=== PATIENT | female | born 1940 | race Caucasian/White ===

== ENCOUNTER → 2016-07-13 | Outpatient (CLI) | payer OTHER, BC ==
[~2016-07-13] MED LIST: ADVIN10/60 INH; ALBUAER2 INH; ASPEC81 PO; Amoxicillin; BIOT1CAP8; CETI10TA84 PO; FELO5TAB PO; MTR500; NAPR-998 PO; NAPR1TAB9 PO; VITAMINB PO; simvastatin PO
[2016-07-13 15:25] LABS: ALB/GLOB RATIO 1.2 (0.9-2); ALKALINE PHOSPHATASE 85 U/L (45-117); ALT/SGPT 29 U/L (12-78); AST/SGOT 22 U/L (15-37); BLOOD UREA NITROGEN 15 mg/dl (7-18); CALCIUM 8.9 mg/dl (8.5-10.1); CARBON DIOXIDE 28 mmol/L (21-32); CHLORIDE 106 mmol/L (98-107); CREATININE 0.83 mg/dl (0.60-1.20); GLUCOSE 86 mg/dl (70-99); HDL CHOLESTEROL 64 mg/dl; POTASSIUM 3.8 mmol/L (3.5-5.1); SODIUM 140 mmol/L (136-145)
[2016-07-13 15:36] LABS: CHOLESTEROL 186 mg/dl (0-200); CHOLESTEROL/HDL RATIO 2.9; LDL CHOLESTEROL CALCULATED 81 mg/dl; TRIGLYCERIDES 206 mg/dl (0-150); VERY LOW DENSITY LIPOPROT CALC 41 mg/dl
== END | disposition home or self-care (01) ==
LOC: C.LABBC 09:39
PROVIDERS: ATTEND Internal Medicine
DX: E78.00 Pure hypercholesterolemia, unspecified (principal); D64.9 Anemia, unspecified

== ENCOUNTER → 2016-10-04 | Outpatient (CLI) | payer OTHER, BC ==
[2016-10-04 12:13] LABS: BASO % 0.4 %; BASO ABS # 0.06 K/uL (0-0.2); COMPLETE YES; EOS % 0.7 %; IG% 0.3 %; LYMPH % 14.8 %; LYMPH ABS # 2.24 K/uL (1.2-3.4); MEAN CELL VOLUME 93.3 fL (80-100); MEAN CORPUSCULAR HEMOGLOBIN 32.1 pg (25-34); MEAN CORPUSCULAR HGB CONC 34.4 g/dl (32-36); MEAN PLATELET VOLUME 10.7 fL (7.4-10.4); MONO % 9.2 %; NEUT % 74.6 %; PLATELET COUNT 478 K/uL (130-400); RED BLOOD COUNT 5.36 M/uL (4.2-5.4); WHITE BLOOD COUNT 15.16 K/uL (4.8-10.8)
[2016-10-04 14:31] LABS: LYME DISEASE AB IGG POS (NEG); LYME DISEASE AB IGM POS (NEG)
[2016-10-10 05:08] LABS: 18KDIGG BAND NONREACTIVE (NONREACTIVE); 23KDIGG BAND REACTIVE (NONREACTIVE); 23KDIGM BAND REACTIVE (NONREACTIVE); 28KDIGG BAND NONREACTIVE (NONREACTIVE); 30KDIGG BAND NONREACTIVE (NONREACTIVE); 39KDIGG BAND NONREACTIVE (NONREACTIVE); 39KDIGM BAND NONREACTIVE (NONREACTIVE); 41KDIGG BAND REACTIVE (NONREACTIVE); 41KDIGM BAND REACTIVE (NONREACTIVE); 45KDIGG BAND NONREACTIVE (NONREACTIVE); 58KDIGG BAND NONREACTIVE (NONREACTIVE); 66KDIGG BAND REACTIVE (NONREACTIVE); 93KDIGG BAND NONREACTIVE (NONREACTIVE)
== END | disposition home or self-care (01) ==
LOC: C.LAB1850 10:37
PROVIDERS: ATTEND Internal Medicine
DX: L53.9 Erythematous condition, unspecified (principal)

== ENCOUNTER → 2016-10-11 | Outpatient (CLI) | payer OTHER, BC ==
--- NOTE | 2016-10-11 16:31 | DIAGNOSTIC IMAGING REPORT ---
KUB CLINICAL HISTORY: Abdominal cramping. Left upper quadrant and left flank pain. COMPARISON STUDY: IVP July 28, 2015. FINDINGS: Abdominal and pelvic surgical clips are noted. There are bowel anastomoses. There is no evidence of a bowel obstruction. There is a moderate amount of stool within the colon, most pronounced within the splenic flexure. There is extensive vascular calcification. No urinary calculi are identified. IMPRESSION: 1. No evidence for a bowel obstruction. 2. Moderate amount of stool within the colon. Electronically signed by: Del Gamboa M.D. 10/11/2016 4:29 PM Dictated Date/Time: 10/11/2016 4:27 PM
== END | disposition home or self-care (01) ==
LOC: C.RAD1850 15:32
PROVIDERS: ATTEND Physician Assistant
DX: R10.9 Unspecified abdominal pain (principal)

== ENCOUNTER → 2016-10-11 | Outpatient (CLI) | payer OTHER, BC ==
[2016-10-11 14:40] LABS: BASO % 0.9 %; BASO ABS # 0.07 K/uL (0-0.2); EOS % 2.7 %; HEMATOCRIT 48.7 % (37-47); IG% 0.3 %; LYMPH % 42.2 %; LYMPH ABS # 3.17 K/uL (1.2-3.4); MEAN CELL VOLUME 92.9 fL (80-100); MEAN CORPUSCULAR HEMOGLOBIN 31.7 pg (25-34); MEAN PLATELET VOLUME 9.6 fL (7.4-10.4); MONO % 13.8 %; NEUT % 40.1 %; PLATELET COUNT 360 K/uL (130-400); RED BLOOD COUNT 5.24 M/uL (4.2-5.4); WHITE BLOOD COUNT 7.52 K/uL (4.8-10.8)
[2016-10-11 14:57] LABS: COMPLETE YES; MEAN CORPUSCULAR HGB CONC 34.1 g/dl (32-36)
== END | disposition home or self-care (01) ==
LOC: C.LAB1850 14:21
PROVIDERS: ATTEND Physician Assistant
DX: R10.9 Unspecified abdominal pain (principal)

== ENCOUNTER → 2016-10-26 | Outpatient (CLI) | payer OTHER, BC | END | disposition home or self-care (01) | LOC: C.MAMM 09:51 | PROVIDERS: ATTEND Internal Medicine | DX: M85.851 Other specified disorders of bone density and structure, right thigh (principal); M85.852 Other specified disorders of bone density and structure, left thigh ==

== ENCOUNTER → 2016-12-27 | Outpatient (CLI) | payer OTHER, BC ==
--- NOTE | 2016-12-27 13:40 | MAMMOGRAPHY REPORT ---
BILATERAL DIGITAL SCREENING MAMMOGRAM TOMOSYNTHESIS WITH CAD: 12/27/2016 CLINICAL HISTORY: Routine screening. TECHNIQUE: Breast tomosynthesis in addition to standard 2D mammography was performed. Current study was also evaluated with a Computer Aided Detection (CAD) system. COMPARISON: Comparison is made to exams dated: 12/27/2015 mammogram, 07/24/2014 mammogram, 03/03/2013 mammogram, 08/23/2011 mammogram, 08/19/2010 mammogram, and 07/21/2009 mammogram - [facility]. BREAST COMPOSITION: The tissue of both breasts is almost entirely fatty. FINDINGS: No suspicious masses, calcifications, or areas of architectural distortion are noted in ei ther breast. There has been no significant interval change compared to prior exams. IMPRESSION: ACR BI-RADS CATEGORY 1: NEGATIVE There is no mammographic evidence of malignancy. A 1 year screening mammogram is recommended. The pa tient will receive written notification of the results. Approximately 10% of breast cancers are not detected with mammography. A negative mammographic report should not delay biopsy if a clinically suggestive mass is present. Zo Guzman M.D. /:12/27/2016 10:18:25 [employer]ipe [employer]itter Ammonia: [facility] FAROOQ([place])([place]), [facility] letter sent: Normal 1/2 BI-RADS Code: ACR BI-RADS Category 1: Negative
== END | disposition home or self-care (01) ==
LOC: C.MAMM 09:52
PROVIDERS: ATTEND Internal Medicine
DX: Z12.31 Encounter for screening mammogram for malignant neoplasm of breast (principal)

== ENCOUNTER → 2017-01-15 | Outpatient (CLI) | payer OTHER, BC ==
[2017-01-15 15:01] LABS: ALT/SGPT 26 U/L (12-78); BLOOD UREA NITROGEN 14 mg/dl (7-18); BUN/CREATININE RATIO 15.6 (10-20); CALCIUM 9.2 mg/dl (8.5-10.1); CARBON DIOXIDE 29 mmol/L (21-32); CHLORIDE 103 mmol/L (98-107); CHOLESTEROL 211 mg/dl (0-200); CREATININE 0.87 mg/dl (0.60-1.20); GLUCOSE 88 mg/dl (70-99); POTASSIUM 3.8 mmol/L (3.5-5.1); SODIUM 139 mmol/L (136-145); TRIGLYCERIDES 236 mg/dl (0-150); VERY LOW DENSITY LIPOPROT CALC 47 mg/dl
[2017-01-15 15:07] LABS: ALB/GLOB RATIO 1.2 (0.9-2); ALKALINE PHOSPHATASE 87 U/L (45-117); AST/SGOT 23 U/L (15-37); CHOLESTEROL/HDL RATIO 3.6; HDL CHOLESTEROL 58 mg/dl; LDL CHOLESTEROL CALCULATED 106 mg/dl
== END | disposition home or self-care (01) ==
LOC: C.LABBC 10:03
PROVIDERS: ATTEND Internal Medicine
DX: E78.00 Pure hypercholesterolemia, unspecified (principal)

== ENCOUNTER → 2017-02-05 | Outpatient (CLI) | payer OTHER, BC ==
--- NOTE | 2017-02-05 11:03 | DIAGNOSTIC IMAGING REPORT ---
ULTRASOUND KIDNEYS AND BLADDER CLINICAL HISTORY: Right-sided hydronephrosis. COMPARISON STUDY: Abdominal CT dated 06/22/2009. IV pyelogram dated 07/28/2015. TECHNIQUE: Real-time, grayscale, and color flow sonography of the kidneys and bladder is performed. Images are reviewed in the transverse and longitudinal planes. FINDINGS: Kidneys: The kidneys are normal in size and echotexture. The right kidney measures 10.6 cm in length and the left kidney measures 10.6 cm in length. An extrarenal pelvis is seen bilaterally. There is fullness the renal collecting system in both kidneys without Zhen hydronephrosis. No shadowing renal calculi are identified. A 6 mm cyst is noted in the right upper pole. There is no sonographic evidence of contour deforming renal mass lesion. No perinephric fluid is identified. Bladder: The bladder is normal in appearance. A left ureteral jet was seen. IMPRESSION: 1. There is fullness of the renal collecting system bilaterally without evidence of zhen hydronephrosis. 2. The bladder was normal as visualized. Electronically signed by: Janusz Rosario M.D. 02/05/2017 11:02 AM Dictated Date/Time: 02/05/2017 10:58 AM
== END | disposition home or self-care (01) ==
LOC: C.ULTR 10:06
PROVIDERS: ATTEND Urology
DX: N13.30 Unspecified hydronephrosis (principal)

== ENCOUNTER → 2017-07-19 | Outpatient (CLI) | payer OTHER, BC ==
[~2017-07-19] MED LIST changes: +ASPI81TA28 PO; +SIMV40TA2 PO; +SYMIN160 INH; +VNTHFA/IN INH
[2017-07-19 11:07] LABS: ALBUMIN 3.6 gm/dl (3.4-5.0); ALT/SGPT 27 U/L (12-78); AST/SGOT 20 U/L (15-37); BLOOD UREA NITROGEN 17 mg/dl (7-18); CARBON DIOXIDE 29 mmol/L (21-32); CREATININE 0.89 mg/dl (0.60-1.20); GLUCOSE 101 mg/dl (70-99); SODIUM 136 mmol/L (136-145)
[2017-07-19 11:09] LABS: ALKALINE PHOSPHATASE 82 U/L (45-117); CHOLESTEROL 162 mg/dl (0-200); LDL CHOLESTEROL CALCULATED 75 mg/dl; TOTAL PROTEIN 7.1 gm/dl (6.4-8.2)
== END | disposition home or self-care (01) ==
LOC: C.LABBC 08:16
PROVIDERS: ATTEND Internal Medicine
DX: E78.00 Pure hypercholesterolemia, unspecified (principal)

== ENCOUNTER 2017-07-21 15:23 | Emergency (ER) | payer OTHER, BC ==
[~2017-07-21] VITALS: Ht 157.5 cm; Wt 74.3 kg
[~2017-07-21 15:23] MED LIST changes: -ASPI81TA28 PO; -SIMV40TA2 PO; -SYMIN160 INH; -VNTHFA/IN INH
[2017-07-21 15:27] VITALS: BP 163/87; PULSE 67; TEMP 36.4; O2SAT 96; Ht 157.5 cm; Wt 74.3 kg
--- NOTE | 2017-07-21 15:56 | EMERGENCY ROOM VISIT NOTE ---
ED Visit Note First contact with patient: 15:30 CHIEF COMPLAINT: Tick bite HISTORY OF PRESENT ILLNESS: This 77-year-old female patient noticed a tick embedded in the right upper arm this afternoon after taking a shower. Patient states that she was out during the morning working in the yard, believes that the tick became attached at that time. She believes the tick has only been on for a few hours. She states that her tried to remove it, but was not able to get all of it. She denies any headaches, neck pain or stiffness, fevers or chills. REVIEW OF SYSTEMS: Head: No headache, injury or neck pain. A Neck: No pain , stiffness, or swelling. Neurological: No headache, new changes in mental status, vertigo, focal weakness, numbness. Gastrointestinal: No abdominal pain , blood in stools, diarrhea, loss of appetite, nausea, or vomiting. General: No fever or chills, fatigue, loss of appetite, or significant recent weight gain or loss. PMH: The patient is healthy; there is no significant medical or surgical history. SOCIAL HISTORY: Patient lives at home. Non-smoker, occasional alcohol use. PHYSICAL EXAM: Vital Signs: Reviewed Nurse's notes. There is a small zone of inflammation and ecchymosis around the spot where the tick was, with retained parts of tick noted in the skin. The skin is otherwise clear. NEUROLOGICAL: Alert and cooperative. Sensory and motor functions grossly intact. EMERGENCY DEPARTMENT COURSE: I examined the patient. There are some remaining parts of the tick within the skin of the patient's neck. This was easily removed utilizing a #11 blade and forceps. The area was cleansed with chlorhexidine, bacitracin and a bandage were applied. The patient tolerated the procedure well with no known complications. Patient was educated regarding wound care, follow-up, and return precautions, she verbalized understanding. Patient was discharged home in stable condition and ambulatory. Current/Historical Medications Scheduled Aspirin (Aspirin Ec), 81 MG PO DAILY Budesonide/Formoterol Fumarate (Symbicort 160/4.5 Inhaler ), 2 PUFFS INH BID Felodipine (Plendil), 5 MG PO DAILY Simvastatin (Zocor), 40 MG PO DAILY Scheduled PRN Albuterol Hfa (Ventolin Hfa), 2-4 PUFFS INH Q6H PRN for Shortness of Breath Allergies Coded Allergies: Codeine (Verified Allergy, Unknown, 09/12/09) Vital Signs Date Time Temp Pulse Resp B/P (MAP) Pulse Ox O2 Delivery O2 Flow Rate FiO2 07/21/17 16:05 16 07/21/17 15:27 36.4 67 20 163/87 96 Room Air Departure Information Impression Primary Impression: Tick bite Dispostion Home / Self-Care Condition GOOD Referrals RV. Sorenson MD (PCP) Patient Instructions ED Bite Tick No Abx Tx, ED Facts Tick, My [facility] Additional Instructions You have been evaluated and treated in the emergency department for your tick bite. Please keep the area clean, you may wash with soap and water. You may apply thin film of antibiotic ointment to the area and keep covered with a Band-Aid for the next 2-3 days. Please monitor the area for any signs of infection, including increased redness , swelling, pain, pus drainage, streaking up the arm, fever/chills, and seek immediate medical attention if any of these are noticed. Problem Qualifiers Primary Impression: Tick bite Encounter type: initial encounter Qualified Codes: W57.XXXA - Bitten or stung by nonvenomous insect and other nonvenomous arthropods, initial encounter
[2017-07-21] MEDS ORDERED: VNTHFA/IN INH (16:01)
[2017-07-21] MEDS ORDERED: SYMIN160 INH (16:01)
[2017-07-21] MEDS ORDERED: FELO5TAB PO (16:01)
[2017-07-21] MEDS ORDERED: SIMV40TA2 PO (16:01)
[2017-07-21] MEDS ORDERED: ASPI81TA28 PO (16:01)
== END 2017-07-21 16:06 | disposition home or self-care (01) ==
LOC: C.EDB 15:23 → C.EDD 16:06
DX: S40.861A Insect bite (nonvenomous) of right upper arm, initial encounter (principal); W57.XXXA Bitten or stung by nonvenomous insect and other nonvenomous arthropods, initial encounter; Z79.82 Long term (current) use of aspirin; Z79.899 Other long term (current) drug therapy; Z88.5 Allergy status to narcotic agent; Y92.017 Garden or yard in single-family (private) house as the place of occurrence of the external cause

== ENCOUNTER 2023-11-27 05:08 | Inpatient (IN) ==
--- NOTE | 2023-10-24 16:02 | PAT Medication Instructions ---
Medication Instructions Date of Service October 24, 2023 Home Medications Medication Instructions Recorded amoxicillin 500 mg capsule See Rx Instructions .Route 11/15/22 .COMPLEX #4 caps felodipine 10 mg tablet,extended 10 mg PO DAILY #90 tabs 02/19/23 release 24 hr olmesartan 5 mg tablet 10 mg (2 x 5 mg) PO DAILY #180 tabs 02/23/23 simvastatin 20 mg tablet 20 mg PO QPM #90 tabs 07/18/23 mometasone 100 mcg/actuation HFA 2 puff inhalation BID #3 Inhalers 08/20/23 aerosol inhaler (Asmanex HFA) diclofenac sodium 1 % topical gel 2 g topical QID #100 grams 09/06/23 oxybutynin chloride 5 mg tablet 5 mg PO DAILY #90 tabs 10/17/23 albuterol sulfate 90 mcg/actuation aerosol inhaler 2 puffs inhalation Q4H PRN sob aspirin 81 mg tablet 81 mg PO DAILY cholecalciferol (vitamin D3) 50 mcg (2,000 unit) capsule 2,000 unit PO DAILY amoxicillin 500 mg capsule See Rx Instructions .Route .COMPLEX psyllium [Metamucil] 1 cap PO Q OTHER DAY timolol maleate 0.5 % eye drops 1 drp ophthalmic (eye) DAILY felodipine 10 mg tablet,extended release 24 hr 10 mg PO DAILY olmesartan 5 mg tablet 10 mg (2 x 5 mg) PO DAILY simvastatin 20 mg tablet 20 mg PO QPM mometasone 100 mcg/actuation HFA aerosol inhaler (Asmanex HFA) 2 puff inhalation BID fexofenadine 180 mg tablet (Deloris Allergy) 180 mg PO Q24H PRN Allergy Symptoms diclofenac sodium 1 % topical gel 2 g topical QID oxybutynin chloride 5 mg tablet 5 mg PO DAILY acetaminophen 650 mg tablet,extended release 650 mg PO Q12H PRN Pain cyanocobalamin (vitamin B-12) 50 mcg tablet (Vitamin B-12) 50 mcg PO DAILY Continue as directed amoxicillin 500 mg capsule See Rx Instructions .Route .COMPLEX ASK your prescriber and surgeon aspirin 81 mg tablet 81 mg PO DAILY STOP taking 24 hours before surgery diclofenac sodium 1 % topical gel 2 g topical QID DO NOT take the morning of surgery cholecalciferol (vitamin D3) 50 mcg (2,000 unit) capsule 2,000 unit PO DAILY psyllium [Metamucil] 1 cap PO Q OTHER DAY olmesartan 5 mg tablet 10 mg (2 x 5 mg) PO DAILY fexofenadine 180 mg tablet (Deloris Allergy) 180 mg PO Q24H PRN Allergy Symptoms oxybutynin chloride 5 mg tablet 5 mg PO DAILY cyanocobalamin (vitamin B-12) 50 mcg tablet (Vitamin B-12) 50 mcg PO DAILY Take morning of surgery With a small sip of water, OTHERWISE NOTHING TO EAT OR DRINK AFTER MIDNIGHT: albuterol sulfate 90 mcg/actuation aerosol inhaler 2 puffs inhalation Q4H PRN sob (use if needed; please bring rescue inhaler with you to hospital day of surgery if possible) timolol maleate 0.5 % eye drops 1 drp ophthalmic (eye) DAILY felodipine 10 mg tablet,extended release 24 hr 10 mg PO DAILY mometasone 100 mcg/actuation HFA aerosol inhaler (Asmanex HFA) 2 puff inhalation BID acetaminophen 650 mg tablet,extended release 650 mg PO Q12H PRN Pain (if needed) Take evening before surgery albuterol sulfate 90 mcg/actuation aerosol inhaler 2 puffs inhalation Q4H PRN sob (if needed) simvastatin 20 mg tablet 20 mg PO QPM mometasone 100 mcg/actuation HFA aerosol inhaler (Asmanex HFA) 2 puff inhalation BID fexofenadine 180 mg tablet (Deloris Allergy) 180 mg PO Q24H PRN Allergy Symptoms (if needed) acetaminophen 650 mg tablet,extended release 650 mg PO Q12H PRN Pain (if needed) Other Notes If you have any questions please call us at [phone] or [phone] or [phone] or [phone]
--- NOTE | 2023-10-25 12:14 | Anesthesiology Consultation ---
Date of Service October 25, 2023 Assessment & Plan (1) Encounter for pre-operative examination: - Infectious disease screening: Per assessment on 10/25/23: No known recent infectious disease contacts or current infectious disease symptoms. - Outpatient joint assessment: Pt currently scheduled for inpatient pathway. If surgeon requests review for outpatient joint pathway, patient is not recommended candidate for outpatient joint program from anesthesia standpoint based on available information. - Patient acceptable risk for surgery pending PCP preop evaluation ([facility], appt 11/07). Chart Review Chart Review: Patient seen in Pre Admission Testing Teaching & Discussion Pre-Anesthesia Teaching/Discussion Notes: Instructed NPO after midnight before surgery,except medications with 15 cc of water. Medication instructions provided according to the PAT guidelines. History Surgery Operation Date: 11/27/23 10:40 Proposed Procedures p Left Total Knee Arthroplasty - Trav Oh MD Height/Weight Height: 5 ft 2 in Weight: 71.6 kg Allergies Allergy/AdvReac Type Severity Reaction Status Date / Time codeine Allergy Unknown Nausea Verified 08/29/23 12:41 buspar AdvReac Intermediate "Did not Uncoded 10/25/23 12:[address] it made me feel" Medications Home Medications Medication Instructions Recorded Confirmed Last Taken albuterol sulfate 90 mcg/actuation 2 puffs inhalation Q4H PRN sob #1 g 12/24/18 10/24/23 Unknown aerosol inhaler aspirin 81 mg tablet 81 mg PO DAILY 01/30/19 10/24/23 Unknown cholecalciferol (vitamin D3) 50 2,000 unit PO DAILY 02/26/20 10/24/23 Unknown mcg (2,000 unit) capsule amoxicillin 500 mg capsule See Rx Instructions .Route 11/15/22 10/24/23 Unknown .COMPLEX #4 caps psyllium [Metamucil] 1 cap PO Q OTHER DAY 12/12/22 10/24/23 Unknown timolol maleate 0.5 % eye drops 1 drp ophthalmic (eye) DAILY 12/12/22 10/24/23 Unknown felodipine 10 mg tablet,extended 10 mg PO DAILY #90 tabs 02/19/23 10/24/23 Unknown release 24 hr olmesartan 5 mg tablet 10 mg (2 x 5 mg) PO DAILY #180 tabs 02/23/23 10/24/23 Unknown simvastatin 20 mg tablet 20 mg PO QPM #90 tabs 07/18/23 10/24/23 Unknown mometasone 100 mcg/actuation HFA 2 puff inhalation BID #3 Inhalers 08/20/23 10/24/23 Unknown aerosol inhaler (Asmanex HFA) fexofenadine 180 mg tablet 180 mg PO Q24H PRN Allergy Symptoms 08/29/23 10/24/23 Unknown (Deloris Allergy) diclofenac sodium 1 % topical gel 2 g topical QID #100 grams 09/06/23 10/24/23 Unknown oxybutynin chloride 5 mg tablet 5 mg PO DAILY #90 tabs 10/17/23 10/24/23 Unknown acetaminophen 650 mg 650 mg PO Q12H PRN Pain 10/24/23 10/24/23 Unknown tablet,extended release cyanocobalamin (vitamin B-12) 50 50 mcg PO DAILY 10/24/23 10/24/23 Unknown mcg tablet (Vitamin B-12) Past Medical History Medical History Anxiety Arthritis Chronic rhinitis Conductive hearing loss Essential hypertension GERD (gastroesophageal reflux disease) History of COVID-19 (2022) Symptoms resolved 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, hx chemo (completed ) and s/p multiple surgical interventions (most recently 2019) Hypercholesteremia Intrinsic asthma Low back pain CRISTINA (obstructive sleep apnea) "No device needed" per patient Osteopenia 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 [place] [facility] [place] [facility] [place]Dr Gonzalez) Monitored every 3 mos- PRN phlebotomy (most recent 09/2023) Exercise / Class Metabolic Activity III < 4 Walking/Shop/Light housework (one FS: No CP, + SOB) Past Family History Family History Brother Myocardial infarction Stroke Brother Myocardial infarction Stroke Mother , AGE 68 Myocardial infarction Parents Stroke Father , AGE 87 Aneurysm of femoral artery Parents Osteoarthritis Aunt Colorectal cancer Grandfather (Maternal) Stroke Denies family history of Ovarian cancer Breast cancer Past Surgical History Surgical History S/P bilateral salpingo-oophorectomy S/P cholecystectomy S/P exploratory laparotomy S/P eye surgery S/P hernia repair S/P hysterectomy S/P right hemicolectomy S/P splenectomy S/P total knee arthroplasty Right Past Anesthesia History No Hx of Anesthesia Complications and No Family Hx of Anesthesia Complications History of PONV No Hx of PONV and No Hx of Motion Sickness Social History Smoking Status: Never smoker Do You Dip or Chew Tobacco: No Hx Alcohol Use: Yes Alcohol type: wine alcohol intake frequency: 0-2 drinks per day (1 drink/day) Hx Substance Use: No substance use type: does not use Review of Systems Patient denies chest pain, shortness of breath, fever, chills, cough, wheezing, palpitations. Physical Exam Vital Signs BP 121/81 P 65 TEMP 97.9 SP02 93%RA RESP 18 Physical Full cervical extension range of motion. Full TMJ range of motion. TMD 3 finger breaths Mallampati Score III Dentition: missing sides/molars, + several dental restorations Lungs: clear throughout to auscultation Cardiac: regular rate and rhythm, no murmurs noted Spine: normal Carotid arteries: negative bruit Extremities: no LE edema Lab Results Anesthesia Preop Results Results Anesthesia Widget: WBC 10.63 K/ul (4.8-10.8) 10/25/23 Hgb 16.6 g/dl (12.0-16.0) H 10/25/23 Hct 49.2 % (37.0-47.0) H 10/25/23 Plt 378 K/uL (130-400) 10/25/23 Na 136 mmol/L (136-145) 10/08/23 K 3.6 mmol/L (3.5-5.1) 10/08/23 Cl 100 mmol/L (98-107) 10/08/23 CO2 31 mmol/L (21-32) 10/08/23 BUN 18 mg/dl (6-23) 10/08/23 Creat 0.77 mg/dl (0.6-1.2) 10/08/23 Glucose Level 67 mg/dl (70-99(Fasting)) L 10/08/23 PT 11.1 Seconds (9.0-12.0) 10/25/23 PTT 27 Seconds (21-31) 10/25/23 INR 1.0 (0.9-1.1) 10/25/23 TSH 2.748 uIu/ml (0.300-4.500) 10/08/23 Free T4 0.86 ng/dl (0.61-1.60) 10/08/23 Blood Type A Positive 10/25/23 Antibody Screen NEGATIVE 10/25/23 Testing Electrocardiogram Date: 08/29/23 NSR at 63bpm. LAD. LVH with QRS widening. Cannot r/o septal infarct, age undetermined. Echo 10/01/23* Chest X-Ray Date: 10/25/23 FINDINGS: Elevation/eventration of the right hemidiaphragm is unchanged. Lungs are clear. There is no pneumothorax or pleural effusion. Cardiac size is normal. Mediastinal contours are normal. There is no evidence for pulmonary edema. IMPRESSION: No acute cardiopulmonary findings. No change in appearance of the chest. Echocardiogram Date: 10/01/23 EF 60-65%. No RWMA. Mild cLVH. Mild LAD. Mild MR. Mild to moderate TR. Mild TN. Normal estimated RVSP.
[2023-11-27] MEDS: LR 60ML/HR IV SCH (05:51)
[2023-11-27] MEDS: ACETAMINOPHEN 500 MG TAB PO SCH ×2 (05:52→14:01)
[2023-11-27] MEDS: LR 500ML BOLUS, THEN 15ML/HR IV SCH (05:52)
[2023-11-27] MEDS: CeleBREX 200 MG CAP PO SCH (05:53)
[2023-11-27] MEDS: FAMOTIDINE 20 MG TAB PO SCH (05:53)
[2023-11-27] MEDS: METOCLOPRAMIDE HCL 10 MG TABLET PO SCH (05:53)
[2023-11-27] MEDS: dexAMETHasone**PF** 10 MG/ML VIAL IV SCH (05:54)
[2023-11-27] MEDS ORDERED: ROPIVACAINE 0.5% 5 MG/ML 30 ML VIAL ONE (06:21)
[2023-11-27] MEDS ORDERED: ONDANSETRON INJ 2 MG/ML 2 ML VIAL IV PRN ×2 (06:43→10:03)
[2023-11-27] MEDS ORDERED: fentaNYL citrate PF 100 MCG/2 ML VIAL ONE (06:43)
[2023-11-27] MEDS ORDERED: MIDAZOLAM HCL 1 MG/ML 2ML VIAL ONE (06:43)
[2023-11-27] MEDS ORDERED: fentaNYL citrate PF 100 MCG/2 ML VIAL IV PRN (06:43)
[2023-11-27] MEDS ORDERED: HYDROmorphone INJ 1 MG/ML SYRINGE IV PRN (06:43)
[2023-11-27] MEDS ORDERED: ATROPINE SULFATE 0.1 MG/ML 10ML SYR IV PRN (06:43)
[2023-11-27] MEDS ORDERED: ePHEDrine sulfate 50 MG/ML AMP IV PRN (06:43)
--- NOTE | 2023-11-27 06:50 | History & Physical Bridge Note ---
Date of Service November 27, 2023 History & Physical Bridge Note I have examined the patient, reviewed the History & Physical and in the interval since the performance of the History & Physical I have noted the following changes of clinical significance: no changes noted
--- NOTE | 2023-11-27 06:50 | History & Physical Report ---
Date of Service November 27, 2023 Assessment & Plan (1) Left knee DJD: 83-year-old female 17 years out from right knee replaced with advanced left knee DJD. She failed conservative treatment. She like to proceed with left knee replacement. Plan: We are going to take her to the operating do left total knee replacement. The risks Mente this procedure explained to the patient in depth. She understands and desires to proceed informed consent was obtained. She is hoping to go to [facility] postoperatively for rehab. History of Present Illness Chief Complaint: . Left knee pain and discomfort Primary Care Provider: Juan Miguel Hargrove MD . Patient is a 83-year-old female now presents for surgical treatment of her left knee. She got a long history of knee problems had a right knee replaced many years ago. She is doing well with this. She continues to be limited by left knee pain. Describes gotten worse over the past several years. She does not like to proceed with left knee replacement. She is failed conservative measures. Allergies Allergy/AdvReac Type Severity Reaction Status Date / Time codeine Allergy Unknown Nausea Verified 11/27/23 05:27 buspar AdvReac Intermediate "Did not Uncoded 11/27/23 05:27 like the way it made me feel" Home Medications Medication Instructions Recorded Confirmed Type aspirin 81 mg tablet 81 mg PO DAILY 01/30/19 11/27/23 History cholecalciferol (vitamin D3) 50 2,000 unit PO DAILY 02/26/20 11/27/23 History mcg (2,000 unit) capsule psyllium [Metamucil] 1 cap PO Q OTHER DAY 12/12/22 11/27/23 History timolol maleate 0.5 % eye drops 1 drp ophthalmic (eye) DAILY 12/12/22 11/27/23 History felodipine 10 mg tablet,extended 10 mg PO DAILY #90 tabs 02/19/23 11/27/23 Rx release 24 hr olmesartan 5 mg tablet 10 mg (2 x 5 mg) PO DAILY #180 tabs 02/23/23 11/27/23 Rx simvastatin 20 mg tablet 20 mg PO QPM #90 tabs 07/18/23 11/27/23 Rx mometasone 100 mcg/actuation HFA 2 puff inhalation BID #3 Inhalers 08/20/2301/09 Rx aerosol inhaler (Asmanex HFA) fexofenadine 180 mg tablet 180 mg PO Q24H PRN Allergy Symptoms 08/29/23 11/27/23 History (Deloris Allergy) diclofenac sodium 1 % topical gel 2 g topical QID #100 grams 09/06/23 11/27/23 Rx oxybutynin chloride 5 mg tablet 5 mg PO DAILY #90 tabs 10/17/23 11/27/23 Rx acetaminophen 650 mg 650 mg PO Q12H PRN Pain 10/24/23 11/27/23 History tablet,extended release cyanocobalamin (vitamin B-12) 50 50 mcg PO DAILY 10/24/23 11/27/23 History mcg tablet (Vitamin B-12) albuterol sulfate 90 mcg/actuation 2 puff inhalation Q6H PRN 11/05/23 11/27/23 Rx aerosol inhaler (Ventolin HFA) shortness of breath or wheezing #3 Inhalers amoxicillin 500 mg capsule 2,000 mg (4 x 500 mg) PO ONCE #4 11/05/23 11/27/23 Rx caps acetaminophen 500 mg tablet 1,000 mg (2 x 500 mg) PO TID pain 11/25/23 11/27/23 Rx (Tylenol Extra Strength) 30 days #180 tabs aspirin 81 mg tablet,delayed 81 mg PO BID 45 days #90 tabs 11/25/23 11/27/23 Rx release (Preet Low Dose Aspirin) cefadroxil 500 mg capsule 500 mg PO DAILY 7 days #7 caps 11/25/23 11/27/23 Rx ketorolac 10 mg tablet 10 mg PO Q6 pain 5 days #20 tabs 11/25/23 11/27/23 Rx ondansetron 4 mg disintegrating 4 mg PO Q8 PRN nausea #20 tabs 11/25/23 11/27/23 Rx tablet sennosides 8.6 mg tablet (Senokot) 8.6 mg PO BID prevent constipation 11/25/23 11/27/23 Rx 14 days #28 tabs tramadol 50 mg tablet 50 - 100 mg (1 - 2 x 50 mg) PO Q6 11/25/23 11/27/23 Rx PRN pain #40 tabs Past Med/Surg History Problem List Anxiety Left knee DJD Abnormal mammogram of right breast Urinary incontinence Smell and taste disorder Vitamin D deficiency Chronic rhinitis (Acute) External hemorrhoids (Acute) Gastroesophageal reflux disease without esophagitis (Acute) Hydronephrosis of right kidney (Acute) Hypercholesterolemia (Acute) Obstructive sleep apnea (adult) (pediatric) (Chronic) Osteopenia (Acute) Medical History Essential hypertension Osteopenia Low back pain Hypercholesteremia 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, hx chemo (completed ) and s/p multiple surgical interventions (most recently 2019) Chronic rhinitis Arthritis 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 Follows with [facility] oncology Secondary polycythemia Follows with [facility] heme/onc (Dr Gonzalez) Monitored every 3 mos- PRN phlebotomy (most recent 09/2023) History of COVID-19 (2022) Symptoms resolved CRISTINA (obstructive sleep apnea) "No device needed" per patient Intrinsic asthma GERD (gastroesophageal reflux disease) Anxiety Conductive hearing loss Surgical History S/P hernia repair S/P total knee arthroplasty Right S/P splenectomy S/P bilateral salpingo-oophorectomy S/P right hemicolectomy S/P hysterectomy S/P eye surgery S/P exploratory laparotomy S/P cholecystectomy Family History Brother Myocardial infarction Stroke Brother Myocardial infarction Stroke Mother , AGE 68 Myocardial infarction Parents Stroke Father , AGE 87 Aneurysm of femoral artery Parents Osteoarthritis Aunt Colorectal cancer Grandfather (Maternal) Stroke Denies family history of Ovarian cancer Breast cancer Social History Smoking Status: Never smoker Second Hand Exposure: No; Do You Dip or Chew Tobacco: No; Tobacco Cessation Education Requested by Patient: No Hx Alcohol Use: Yes Alcohol type: wine Alcohol Intake Frequency Comment: SOCAILLY Hx Substance Use: No Preferred Language: Bulgarian Communication Ability: Effective Visual Impairment: No Limitations Hearing Ability: Normal Photo Engraver Required: No Beliefs That Will Affect Care: None marital status: Current Living Situation: Spouse current occupational status: retired Other Information That Helps Us Care for You: No Feels Safe at Home: Yes Safety Concerns: Feels Safe At This Time Dental Care, Regularly: Yes Physical Activity Frequency: Daily Physical Activity Frequency Comment: yoga, walk Seatbelt Use: always Sunscreen Use: Yes Assistive Devices: None Review of Systems All systems reviewed & are unremarkable except as noted in HPI & below. Physical Exam . Physical exam shows a pleasant elderly female. She ambulates independently. Examination of the left knee reveals varus alignment to her knee. Small knee effusion. Her range of motion about 5 degrees short of full extension to 120 degrees of flexion. No instability. No particular pain with hip motion. Constitutional WD/WN, vitals as above Neck trachea midline, no thyromegaly Respiratory normal respiratory effort, lungs clear to auscultation Gastrointestinal (Abdomen) normal bowel sounds, soft, nontender, no hepatosplenomegaly Results & Data Results & Data Laboratory Results . Diagnostic Findings . X-rays of the left knee reveal advanced left knee DJD. She is got complete loss of medial joint space. Scattered tricompartment disease. The right knee replaced looks very good position without signs of problems. PG Care Time/CCT Total # of Minutes Spent Total Time Spent with Patient: Total time spent is greater than 50% in coordination of care (as documented) at patient's floor/unit and/or counseling patient: Coding Level of Care Code None Diagnoses Left knee DJD M17.12
[2023-11-27] MEDS: ceFAZolin 2000MG 2,000 MG/15 ML SYR IV SCH (07:00)
[2023-11-27] MEDS ORDERED: PROPOFOL IV EMULSION 10 MG/ML 20 ML VIAL IV ONE ×2 (07:11→08:12)
[2023-11-27] MEDS: ORTHO JOINT ANESTHETIC ONE (07:31)
[2023-11-27] MEDS: ROPIV 0.5% 246mg, Ketorolac 30mg, EPINEPHrine 0.5mg in NSS INFIL SCH (07:31)
[2023-11-27] MEDS: TRANEXAMIC ACID 1,000 MG **IV Intra-op IV SCH (07:50)
[2023-11-27] MEDS ORDERED: ONDANSETRON INJ 2 MG/ML 2 ML VIAL ONE (08:00)
--- NOTE | 2023-11-27 08:43 | Operative Report ---
PG Post Operative Report Pre & Post Diagnosis Operation Date: 11/27/23 07:00 Pre-Op Diagnosis: Left Knee Degenerative Joint Disease Post-Op Diagnosis: Left Knee Degenerative Joint Disease I identified the patient and participated in the time-out.: Yes Procedure Operation Date: 11/27/23 07:00 Actual Procedures p Left Total Knee Arthroplasty(Left) - Trav Oh MD Surgeon Trav Oh MD Gis Physical Scientist Ryan Valero PA-C Estimated Blood Loss 50 Findings Consistent with Post-Op Diagnosis Specimens Left knee sent for pathology Anesthesia Type Spinal MAC Complications none Disposition Accompanied Patient To Recovery: No Indications The patient is a 83-year-old female has had a long history of knee problems. She had a right knee replaced 17 years ago. Over the past several years she developed increased pain discomfort her left knee. She failed conservative measures. X-rays show advanced left knee arthritis. She elected proceed with surgical treatment. Description of Procedure Operative implants consist of: 1. Biomet Vanguard size 62.5 left posterior stabilized femoral component. 2. Biomet size 67 tibial tray. 3. 10 mm posterior stabilized polyethylene insert. 4. 28 x 8 all poly patella. The patient was taken to the operating, identified, placed on the operating table in the supine position. All contact areas were appropriate padded. IV antibiotics were by anesthesia team. A spinal anesthetic and adductor canal block had been provided in the holding area. A Fragoso catheter was placed in sterile fashion. Left factor was then placed. The left lower extremity was then prepped and draped in usual sterile fashion. The left leg was elevated and exsanguinated with use of an Esmarch and tourniquet placed at 300 mmHg. An anterior approach to the left knee was then performed to longitudinal incision centered over the patella. Sharp dissection through subcutaneous tissue down the extensor mechanism. A medial parapatellar arthrotomy incision was made. Some subperiosteal dissection was carried out medially. The fat pad was resected munis patella tendon. Lateral patellofemoral ligament was released. The patella subluxated laterally and the knee was flexed. The osteophytes were taken off distal femur. The ACL and PCL were then released from the distal femur and the tibia subluxated anteriorly. The external tibial alignment jig was then placed on the anterior face of the tibia and adjusted 14 mm medially. Proximal tibial cut was made remove about a millimeter bone from most deficient aspect medial tibial plateau. Some osteophytes taken off medial and posterior medially. The tibia sized to a size 67. Attention drawn the femur. The distal femur examined the sharp drop with intramedullary canal was suction. A left 5 degree valgus cutting guide was placed. The distal femoral cutting block was pinned in place. Distal femoral cut was made take an additional 3 mm of bone off distal femur. The femur was then sized to a size 62.5. The AP cutting block was pinned parallel to the epicondylar axis which was 5 degrees of external rotation. The anterior cut, anterior chamfer, posterior cut, posterior chamfer cuts were made. The box cutting guide was placed in just slight lateral and the box cut was made. The knee was flexed. The remnants of the medial and lateral menisci were excised. The osteophytes taken off the posterior aspect the femur. A trial femoral component was placed. The tibial tray was pinned Monica external rotation and the drill and stem punch were used to create defect in proximal tibia for the tibial tray. Knee was then trialed and the 10 mm insert fit most appropriately. Attention drawn the patella. The patella was cleaned of all soft tissue. Patella thickness measured 21 mm in thickness was cut down to 13. Was sized to a size 28 patella. The lug holes were drilled for the 28 patella. The lateral osteophytes removed. Patella button was placed. Knee was taken through range of motion patella tracked nicely with no thumbs test. Attention was then drawn toward placing the permanent components. All trial components removed. Bone plug was placed into the distal femur limit blood loss. A double batch Palacos G cement was mixed. A Biomet Vanguard size 62.5 left posterior stabilized femoral component, size 67 tibial tray, 10 mm posterior stabilized polyethylene insert, and a 28 x 8 all poly patella was then cemented into place. The knee was brought out in full extension till cement hardened. Final cement check was then performed. The pericapsular tissues were injected with a total of 100 cc of Ortho mix. The patient did receive 1 g tranexamic acid. The tourniquet was then let down for final tourniquet time of 51 minutes. Hemostasis assured with electrocautery. Extensor Metros then closed with combination 1 PDS suture and then 1 Vicryl suture in a [id number] fashion. Extensor Meclomen checked found to be intact and subcutaneous tissues then closed with 2 Dexon suture in a buried interrupted fashion skin was closed skin wilber. Leg was then cleaned and dried and a sterile dressing with Xeroform, 4 fours, sterile ABD pad, sterile cast padding, Frandy bandage were applied. Patient then transferred to the recovery room in stable condition. Patient tolerated procedure well and there were no complications. Ryan Valero, my physician market research assistant, was present for the entire procedure. His assistance was essential and required for appropriate patient positioning, prepping and draping, surgical exposure, performing the technical details of the operation, placement the implants, closure of the wound, and placement of the sterile bandage. I attest to the content of the Intraoperative Record and any orders documented therein. Any exceptions are noted below.
--- NOTE | 2023-11-27 08:58 | XRay Report ---
XR knee LT 1 or 2V routine CLINICAL HISTORY: Surgical Post Op TECHNIQUE: 2 views of the left knee were obtained. Comparison: Comparison is made to knee radiographs 07/13/2023 FINDINGS: Patient is status post total knee arthroplasty with expected postsurgical changes including soft tiss ue swelling and subcutaneous emphysema. No periarticular lucency or hardware fracture is seen. IMPRESSION: Expected postoperative appearance status post placement of total knee arthroplasty. ACT 112: Negative or not required by law. Electronically signed by: José Antonio Pop M.D. 11/27/2023 8:57 AM
--- NOTE | 2023-11-27 09:38 | Anesthesiology Progress Note ---
Date of Service November 27, 2023 Anesthesia Post Procedure Vital Signs Vital Signs: Temp Pulse Pulse Resp BP Pulse Ox O2 Del Method 11/27/23 09:35 64 16 126/63 94 Nasal Cannula 11/27/23 09:20 66 13 128/68 92 Nasal Cannula 11/27/23 09:05 36.5 C 69 14 132/60 94 Nasal Cannula 11/27/23 08:55 73 16 128/64 94 Oxymask 11/27/23 08:45 74 16 132/71 95 Oxymask 11/27/23 08:37 36.4 C L 71 16 127/59 L 95 Oxymask 11/27/23 05:30 36.6 C 70 18 136/99 94 Room Air O2 Flow Rate 11/27/23 09:35 2 11/27/23 09:20 2 11/27/23 09:05 2 11/27/23 08:55 4 11/27/23 08:45 4 11/27/23 08:37 6 11/27/23 05:30 Transfer of Care Handoff Completed per policy Notes Mental Status: alert / awake / arousable and participated in evaluation Patient Amnestic to Procedure: Yes Nausea / Vomiting: adequately controlled Pain: adequately controlled Airway Patency, RR, SpO2: stable & adequate BP & HR: stable & adequate Hydration State: stable & adequate Anesthetic Complications: no major complications apparent and Pt Satisfied with anesthetic care
[2023-11-27] MEDS ORDERED: HYDROmorphone INJ 0.5 MG/0.5 ML SYR IV PRN (10:03)
[2023-11-27] MEDS ORDERED: MAGNESIUM HYDROXIDE SUSP 30 ML UDC PO PRN (10:03)
[2023-11-27] MEDS ORDERED: bisacodyL 10 MG SUPP PR PRN (10:03)
[2023-11-27] MEDS ORDERED: NALOXONE HCL 0.4 MG/1 ML VIAL/CARP IV PRN (10:03)
[2023-11-27] MEDS ORDERED: ALBUTEROL HFA 8 GM INHALER INH PRN (10:03)
[2023-11-27] MEDS ORDERED: FEXOFENADINE HCL 180 MG TAB PO PRN (10:03)
[2023-11-27] MEDS ORDERED: METOCLOPRAMIDE HCL INJ 5 MG/ML 2 ML VIAL IV PRN (10:03)
[2023-11-27] MEDS ORDERED: ALUMINUM/MAGNESIUM SUSP 30 ML UDC PO PRN (10:03)
[2023-11-27] MEDS: SODIUM CHLORIDE 0.9% 1,000 ML IV SCH (10:45)
[2023-11-27] MEDS: DOCUSATE SODIUM 100 MG CAP PO SCH (11:34)
[2023-11-27] MEDS: SENNA 8.6 MG TAB PO SCH ×2 (11:34→20:06)
[2023-11-27] MEDS: KETOROLAC TROMETHAMINE 15 MG/ML VIAL IV SCH (11:34)
[2023-11-27] MEDS: TIMOLOL MALEATE 0.5% OP SOLN 5 ML BTL OP SCH (11:34)
[2023-11-27] MEDS: MULTIVITAMIN TAB PO SCH (11:35)
[2023-11-27] MEDS: CYANOCOBALAMIN (B-12) 100 MCG TABLET PO SCH (11:35)
[2023-11-27] MEDS: oxyBUTYnin chloride 5 MG TAB PO SCH (11:35)
[2023-11-27] MEDS: CHOLECALCIFEROL 25 MCG (1000 UNITS) TAB PO SCH (11:36)
[2023-11-27] MEDS: ASPIRIN 81 MG ECTAB PO SCH (11:36)
[2023-11-27] MEDS: FLUTICASONE FUROATE 200MCG 14 PUFFS/INHALER INH SCH (11:37)
[2023-11-27] MEDS: LOSARTAN POTASSIUM 25 MG TAB PO SCH (12:16)
[2023-11-27] MEDS: PSYLLIUM or GUAR GUM FIBER 4GM PACKET PO SCH (12:17)
[2023-11-27] MEDS: FELODIPINE 5 MG TABCR PO SCH (13:14)
[2023-11-27] MEDS: TRANEXAMIC ACID / 0.7% NACL 1,000 MG/100 ML BAG IV SCH (14:01)
[2023-11-27] MEDS: ceFAZolin 1000MG 1,000 MG/7.5 ML SYR IV SCH (14:02)
[2023-11-27] MEDS: ASCORBIC ACID 500 MG TAB PO SCH (16:27)
[2023-11-27] MEDS: SIMVASTATIN 20 MG TAB PO SCH (20:00)
[2023-11-27 23:33] VITALS: RESP 16
[2023-11-28] MEDS: traMADol HCL 50 MG TABLET PO PRN (01:06)
[2023-11-28 07:01] VITALS: BP 159/80; PULSE 57; TEMP 98.1; O2SAT 94
[2023-11-28] MEDS: dexAMETHasone 10 MG in SYRINGE 0 ML IV SCH (07:57)
[2023-11-28 08:50] LABS: Hematocrit (blood only) 38.2 % (37.0-47.0); Hemoglobin 13.4 g/dl (12.0-16.0); Mean Corpuscular Hemoglobin 32.8 pg (25.0-34.0); Mean Corpuscular Hgb Conc 35.1 g/dL (32.0-36.0); Mean Corpuscular Volume 93.6 fL (80.0-100.0); Mean Platelet Volume 10.7 fL (9.4-12.4); Platelet Count 248 K/uL (130-400); RDW Coefficient of Variation 13.2 % (11.5-14.5); RDW Standard Deviation 45.1 fL (36.4-46.3); Red Blood Count 4.08 M/uL (4.20-5.40); White Blood Count 18.31 K/ul (4.8-10.8)
[2023-11-28 08:59] LABS: BUN Creatinine Ratio 22.4 (10-20); Calcium 8.5 mg/dl (8.6-10.3); Creatinine Clr Calc Pharmacy 56.3 ml/min; Est GFR (African American) 92.9 ml/min; Est GFR (Non-African American) 80.2 ml/min
--- NOTE | 2023-11-28 10:55 | Orthopedic Progress Note ---
Date of Service November 28, 2023 Assessment & Plan (1) Status post left knee replacement: Plan: 83-year-old female now postop day 1 from a left knee replacement. As she is doing better this morning. Had a pretty rough night but seem to be doing well. Therapy is going well. Pains controlled. She is neurologically intact. Plan: 1. DVT prophylaxis including thigh-high teds, SCDs, aspirin twice a day for 6 weeks. 2. PT/OT. She can weight-bear as tolerated. 3. Pain control doing okay with current pain regimen. 4. Disposition plan is to discharge her to [facility] for a brief rehab stay. Admission and Anticipated Discharge Date Admission Date: November 27, 2023 Subjective 83-year-old female postop day 1 from a left knee replacement. She had a pretty rough night pain [place] but doing better this morning. She is currently doing therapy. She denies any chest pain shortness of breath. She is hoping to go to [facility] for a period of time. Physical Exam Physical Exam: Physical examination is a pleasant elderly female. As she was doing therapy when I visited this morning. She was actually walking on the steps. Examination of the left leg reveals the dressing be clean dry and intact. There is no discharge or drainage. She can dorsiflex and plantarflex her foot appropriately. She is neurologically intact. Respiratory: normal respiratory effort, lungs clear to auscultation Cardiovascular: RRR, no murmur, no edema Gastrointestinal (Abdomen): normal bowel sounds, soft, nontender, no hepatosplenomegaly Results & Data Vital Signs (Past 12 Hours) Vital Signs Temp Pulse Resp BP Pulse Ox O2 Del Method 11/28/23 07:30 Room Air 11/28/23 07:00 36.7 C 57 L 16 159/80 H 94 Room Air 11/28/23 02:35 36.8 C 55 L 16 127/57 L 93 Room Air 11/27/23 23:10 36.7 C 50 L 16 146/78 H 94 Room Air Laboratory Results Hemoglobin is 13.4. Hematocrit is 38.2. Electrolytes are stable.
--- NOTE | 2023-11-30 11:38 | Discharge Summary ---
Date of Service November 30, 2023 Discharge Data Procedures Performed Operation Date: 11/27/23 07:00 Actual Procedures p Left Total Knee Arthroplasty(Left) - Trav Oh MD Hospital Course (1) Status post left knee replacement: This is a 83 year old patient admitted on 11/27/23 and underwent total knee arthroplasty. She tolerated the procedure well and there were no complications. Transferred to the PACU post op and later to the orthopedic floor for further care. She was given ancef for antibiotic prophylaxis. She was also given DENI stockings, SCDs, and aspirin for DVT prophylaxis. Hemoglobin, hematocrit, and vital signs were monitored during her hospital stay and remained stable. Did not require any blood transfusions. There were no complications during her hospital stay. By post op day #1 the patient was tolerating a regular diet, pain was reasonably controlled with oral pain medicine, and she was participating in physical therapy. On post op day #1 the patient was discharged home and set up with home health care. She was given printed discharge instructions including prescriptions for extra strength tylenol, aspirin, cefadroxil, ketorolac, zofran, senokot, and tramadol. Continue physical therapy, weight bearing as tolerated. Continue DENI stockings. Follow up approximately 2 weeks post op or sooner if there are problems or concerns. Coding Level of Care Code None Diagnoses Status post left knee replacement Z96.652
== END 2023-11-28 13:30 | DRG 470 ==
LOC: ASU 05:08 → 3E 08:36

== ENCOUNTER 2023-12-01 00:10 | Inpatient (IN) ==
[2023-12-01 00:52] LABS: Basophils % (auto) 0.5 %; Eosinophils # (auto) 0.29 K/uL (0.00-0.50); Eosinophils % (auto) 1.4 %; Hematocrit (blood only) 31.1 % (37.0-47.0); Hemoglobin 10.4 g/dl (12.0-16.0); Immature Granulocytes # (auto) 0.25 K/uL (0.01-0.20); Immature Granulocytes % (auto) 1.2 %; Lymphocytes % (auto) 17.1 %; Mean Corpuscular Hemoglobin 32.4 pg (25.0-34.0); Mean Corpuscular Hgb Conc 33.4 g/dL (32.0-36.0); Mean Corpuscular Volume 96.9 fL (80.0-100.0); Mean Platelet Volume 10.8 fL (9.4-12.4); Monocytes # (auto) 1.53 K/uL (0.11-0.59); Monocytes % (auto) 7.5 %; Neutrophils # (auto) 14.75 K/uL (1.40-6.50); Neutrophils % (auto) 72.3 %; Platelet Count 231 K/uL (130-400); RDW Coefficient of Variation 13.3 % (11.5-14.5); RDW Standard Deviation 47.6 fL (36.4-46.3); Red Blood Count 3.21 M/uL (4.20-5.40); White Blood Count 20.42 K/ul (4.8-10.8)
[2023-12-01 01:00] LABS: Albumin Globulin Ratio 1.5 (0.9-2); Albumin Level 3.1 gm/dl (3.4-5.0); BUN Creatinine Ratio 56.3 (10-20); Bilirubin,Total 0.7 mg/dl (0.2-1.0); Calcium 8.2 mg/dl (8.6-10.3); Creatinine Clr Calc Pharmacy 49.8 ml/min; Est GFR (African American) 77.9 ml/min; Est GFR (Non-African American) 67.2 ml/min; Globulin 2.1 gm/dl (2.5-4.0); Potassium 4.7 mmol/L (3.5-5.1); Total Protein 5.2 gm/dl (6.0-8.3)
[2023-12-01 01:07] LABS: Troponin I High Sensitivity 8.9 pg/ml (0-14)
[2023-12-01 01:17] LABS: INR 1.1 (0.9-1.1); Partial Thromboplastin Ratio 0.9; Partial Thromboplastin Time 23 Seconds (21-31); Prothrombin Time 11.4 Seconds (9.0-12.0)
--- NOTE | 2023-12-01 02:36 | Emergency Department Note ---
Impression & Plan Acute upper gastrointestinal bleeding, Acute hypotension admit to the [facility] ED Provider Note NAME: ALEC BEASLEY AGE: 83 SEX: Female INFORMANT: Patient ED PROVIDER(S): Tequila Amezquita DO CHIEF COMPLAINT: Coffee-ground emesis PLAN: Disposition: admit to the [facility] MEDICAL DECISION MAKING: patient underwent total knee replacement on November 26. She has had a normal postoperative course and rehab at [facility]. Tonight around 10 PM, the patient became nauseated and had an episode of coffee-ground emesis with an episode of unresponsiveness lasting approximately 30 seconds. patient has no history of GI bleeding or anemia. In fact, she has a history of polycythemia with as needed phlebotomy. Patient has been receiving Tylenol, tramadol and ketorolac for pain management since surgery. Hemoglobin prior to surgery was 13.3 and now is 10.4. Patient was given a dose of IV Protonix along with a 500 cc bolus of saline as she was initially hypotensive. Nursing staff attempted to pass a nasogastric tube but were unsuccessful in both nares. Patient had a melanotic bowel movement. The patient was typed and screened for blood. Other laboratory values revealed a white blood cell count of 20.4. Coagulation studies were normal. BUN was 45 and creatinine was 0.8. Glucose was 141 and troponin was normal. I discussed the case with the [facility] Hospitalist and they will evaluate for further inpatient care. Care/management discussed with: manager report and the [facility] Triage Nursing notes: reviewed and agree with them. Vital Signs: reviewed and remarkable for hypotension Additional History obtained from: patient's family is at the bedside Chronic Medical/Social Conditions affecting care: polycythemia Prior/ Outside/ External records reviewed: records from [facility] were reviewed Differential Diagnosis: Bleeding ulcer, anemia, gastritis secondary to Toradol use Diagnostics, independently interpreted by me: ECG: normal sinus rhythm at a rate of [address] segment elevation or signs of ischemia. There is no ectopy. There is axis deviation in comparison to last EKG from 2006. Cardiac Monitoring: Normal sinus rhythm at a rate of 74 Imaging studies: portable chest x-ray: No acute pulmonary infiltrates or consolidations. There is note of a calcified aorta as per my independent interpretation. HPI: 83 year old Female arrives for evaluation of Coffee-ground emesis. Tonight around 10 PM, the patient became nauseated and had an episode of coffee- ground emesis with an episode of unresponsiveness lasting approximately 30 seconds. patient has no history of GI bleeding or anemia. patient is currently at [facility] after a total knee replacement on November 26. She is taking Tylenol, tramadol and ketorolac for pain management. PAST MEDICAL HISTORY: See Below, PAST SURGICAL HISTORY: See Below, SOCIAL HISTORY: See Below, HOME MEDICATIONS: See list ALLERGIES: see list VITALS: See Below PHYSICAL EXAMINATION: HEENT: Head - normocephalic and atraumatic. Pupils are equal, round, and reactive to light. Extraocular eye muscles are intact, and sclera are anicteric. Nose - moist nasal mucosa without discharge. Mouth - moist buccal mucosa. Oropharynx is nonerythematous and there is no tonsillar exudate or edema noted. Neck: Supple; no cervical lymphadenopathy or JVD Heart: Regular rate and rhythm. There is a normal S1 and S2 with no murmurs, clicks, or gallops appreciated. Lungs: Clear to auscultation bilaterally with no wheezes, rales, or rhonchi. Abdomen: Soft, completely nontender, nondistended, with good bowel sounds. There are no palpable pulsatile masses or hepatosplenomegaly. There is no guarding, rigidity, or rebound noted. Extremities: postsurgical changes to the left knee with edema and ice applied. There are easily palpable peripheral pulses. Skin: warm and dry with good turgor and no rashes. Emergency department treatment: patient monitor, IV normal saline bolus, IV Protonix NG tube-Attempted but unsuccessful. Emergency Department course: The patient was evaluated in room A-9. A complete history and physical was performed. Laboratory studies were drawn as above. The patient was hypotensive and was bolused with IV normal saline solution and placed in reverse Trendelenburg. She was given a dose of IV Protonix. An NG tube Was attempted but was unsuccessful. Green for blood as she had a 3 g drop in her hemoglobin in the past couple days. Patient did have significant urge to have bowel movement and this was melanotic. Blood pressure remained stable. I have discussed the case with the [facility] Hospitalist and they will evaluate for further inpatient care. I have personally spent greater than 30 minutes of critical care time in the direct management of this patient. This includes bedside care, interpretation of diagnostic studies, and testing, discussion with consultants, patient, and family members, and other required patient management activities. This 30 minutes is in excess of all separately billable procedures. Past Med/Surg History Problem List (Updated 12/01/23 @ 15:32 by Tequila Amezquita DO) Acute hypotension (Acute) Acute upper gastrointestinal bleeding (Acute) Hematemesis Status post left knee replacement Anxiety Left knee DJD Abnormal mammogram of right breast Urinary incontinence Smell and taste disorder Vitamin D deficiency Chronic rhinitis (Acute) External hemorrhoids (Acute) Gastroesophageal reflux disease without esophagitis (Acute) Hydronephrosis of right kidney (Acute) Hypercholesterolemia (Acute) Obstructive sleep apnea (adult) (pediatric) (Chronic) Osteopenia (Acute) Medical History Essential hypertension Osteopenia Low back pain Hypercholesteremia 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, hx chemo (completed ) and s/p multiple surgical interventions (most recently 2019) Chronic rhinitis Arthritis 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 Follows with [facility] oncology Secondary polycythemia Follows with [facility] heme/onc (Dr Gonzalez) Monitored every 3 mos- PRN phlebotomy (most recent 09/2023) History of COVID-19 (2022) Symptoms resolved CRISTINA (obstructive sleep apnea) "No device needed" per patient Intrinsic asthma GERD (gastroesophageal reflux disease) Anxiety Conductive hearing loss Surgical History S/P hernia repair S/P total knee arthroplasty Right S/P splenectomy S/P bilateral salpingo-oophorectomy S/P right hemicolectomy S/P hysterectomy S/P eye surgery S/P exploratory laparotomy S/P cholecystectomy Family History Brother Myocardial infarction Stroke Brother Myocardial infarction Stroke Mother , AGE 68 Myocardial infarction Parents Stroke Father , AGE 87 Aneurysm of femoral artery Parents Osteoarthritis Aunt Colorectal cancer Grandfather (Maternal) Stroke Denies family history of Ovarian cancer Breast cancer Social History Smoking Status: Never smoker Second Hand Exposure: No; Do You Dip or Chew Tobacco: No; Hx Alcohol Use: Yes Alcohol type: wine Alcohol Intake Frequency Comment: SOCAILLY Hx Substance Use: No Preferred Language: Polish Communication Ability: Effective Visual Impairment: No Limitations Hearing Ability: Normal 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 Required: No Beliefs That Will Affect Care: None marital status: Current Living Situation: Spouse current occupational status: retired Feels Safe at Home: Yes Safety Concerns: Feels Safe At This Time Dental Care, Regularly: Yes Physical Activity Frequency: Daily Physical Activity Frequency Comment: yoga, walk Seatbelt Use: always Sunscreen Use: Yes Assistive Devices: None Allergies Allergies Allergy/AdvReac Type Severity Reaction Status Date / Time codeine Allergy Unknown Nausea Verified 11/27/23 05:27 buspar AdvReac Intermediate "Did not Uncoded 11/27/23 05:[address] the way it made me feel" Home Meds Home Medications Medication Instructions Recorded Confirmed cholecalciferol (vitamin D3) 50 2,000 unit PO DAILY 02/26/20 12/01/23 mcg (2,000 unit) capsule psyllium [Metamucil] 1 cap PO Q OTHER DAY 12/12/22 12/01/23 timolol maleate 0.5 % eye drops 1 drp ophthalmic (eye) DAILY 12/12/22 12/01/23 cyanocobalamin (vitamin B-12) 50 50 mcg PO DAILY 10/24/23 12/01/23 mcg tablet (Vitamin B-12) amlodipine 10 mg tablet 10 mg PO DAILY 12/01/23 12/01/23 amoxicillin 500 mg capsule 2,000 mg PO ONCE PRN prior to 12/01/23 12/01/23 dental appt atorvastatin 10 mg tablet 10 mg PO HS 12/01/23 12/01/23 loratadine 10 mg tablet 10 mg PO DAILY PRN Allergy Symptoms 12/01/23 12/01/23 losartan 50 mg tablet 50 mg PO DAILY 12/01/23 12/01/23 ondansetron 4 mg disintegrating 4 mg PO Q4 PRN nausea 12/01/23 12/01/23 tablet Previous Rx's Medication Instructions Recorded oxybutynin chloride 5 mg tablet 5 mg PO DAILY #90 tabs 10/17/23 albuterol sulfate 90 mcg/actuation 2 puff inhalation Q6H PRN 11/05/23 aerosol inhaler (Ventolin HFA) shortness of breath or wheezing #3 Inhalers acetaminophen 500 mg tablet 1,000 mg (2 x 500 mg) PO TID pain 11/25/23 (Tylenol Extra Strength) 30 days #180 tabs aspirin 81 mg tablet,delayed 81 mg PO BID 45 days #90 tabs 11/25/23 release (Preet Low Dose Aspirin) cefadroxil 500 mg capsule 500 mg PO DAILY 7 days #7 caps 11/25/23 ketorolac 10 mg tablet 10 mg PO Q6 pain 5 days #20 tabs 11/25/23 sennosides 8.6 mg tablet (Senokot) 8.6 mg PO BID prevent constipation 11/25/23 14 days #28 tabs tramadol 50 mg tablet 50 - 100 mg (1 - 2 x 50 mg) PO Q6 11/25/23 PRN pain #40 tabs Results & Data (ED) Vital Signs Vital Signs - 24 hr 12/01/23 00:21 12/01/23 00:32 12/01/23 00:32 Temperature 36.4 C L Temperature Source Oral Pulse Rate 73 78 Pulse Rate [Apical] Respiratory Rate 22 Blood Pressure 121/65 Blood Pressure [Right Arm] Blood Pressure Mean 83 Blood Pressure Mean [Right Arm] Blood Pressure Position [Right Arm] Pulse Oximetry 92 92 Oxygen Delivery Method Room Air Room Air Oxygen Flow Rate Sepsis Recent Fever Within 48 Hours No Sepsis New/Unexplained Change in Mental Status No Sepsis Action Taken by Nursing No Action Required Oxygen Flow Rate - Titration Pulse Oximetry Post Tiitration 12/01/23 00:32 12/01/23 01:34 12/01/23 01:45 Temperature Temperature Source Pulse Rate Pulse Rate [Apical] 75 Respiratory Rate 20 Blood Pressure Blood Pressure [Right Arm] 97/57 L Blood Pressure Mean Blood Pressure Mean [Right Arm] 70 Blood Pressure Position [Right Arm] Semi-fowlers Pulse Oximetry 92 90 88 L Oxygen Delivery Method Room Air Room Air Room Air Nasal Cannula Oxygen Flow Rate Sepsis Recent Fever Within 48 Hours Sepsis New/Unexplained Change in Mental Status Sepsis Action Taken by Nursing Oxygen Flow Rate - Titration 2 Pulse Oximetry Post Tiitration 94 12/01/23 01:47 12/01/23 02:00 12/01/23 02:06 Temperature Temperature Source Pulse Rate Pulse Rate [Apical] 72 70 69 Respiratory Rate 22 18 18 Blood Pressure Blood Pressure [Right Arm] 95/51 L 89/50 L 114/59 L Blood Pressure Mean Blood Pressure Mean [Right Arm] 65 63 77 Blood Pressure Position [Right Arm] Lying Pulse Oximetry 94 95 94 Oxygen Delivery Method Nasal Cannula Nasal Cannula Nasal Cannula Oxygen Flow Rate 2 2 2 Sepsis Recent Fever Within 48 Hours Sepsis New/Unexplained Change in Mental Status Sepsis Action Taken by Nursing Oxygen Flow Rate - Titration Pulse Oximetry Post Tiitration 12/01/23 02:30 12/01/23 03:02 12/01/23 03:30 Temperature Temperature Source Pulse Rate Pulse Rate [Apical] 73 83 83 Respiratory Rate 18 18 20 Blood Pressure Blood Pressure [Right Arm] 132/80 121/85 124/78 Blood Pressure Mean Blood Pressure Mean [Right Arm] 97 97 93 Blood Pressure Position [Right Arm] Pulse Oximetry 97 94 96 Oxygen Delivery Method Nasal Cannula Nasal Cannula Nasal Cannula Oxygen Flow Rate 2 2 2 Sepsis Recent Fever Within 48 Hours Sepsis New/Unexplained Change in Mental Status Sepsis Action Taken by Nursing Oxygen Flow Rate - Titration Pulse Oximetry Post Tiitration 12/01/23 04:00 12/01/23 04:30 Temperature Temperature Source Pulse Rate Pulse Rate [Apical] 78 79 Respiratory Rate 18 18 Blood Pressure Blood Pressure [Right Arm] 118/64 122/60 Blood Pressure Mean Blood Pressure Mean [Right Arm] 82 80 Blood Pressure Position [Right Arm] Pulse Oximetry 96 96 Oxygen Delivery Method Nasal Cannula Nasal Cannula Oxygen Flow Rate 2 2 Sepsis Recent Fever Within 48 Hours Sepsis New/Unexplained Change in Mental Status Sepsis Action Taken by Nursing Oxygen Flow Rate - Titration Pulse Oximetry Post Tiitration Laboratory Data 12/01/23 14:09 12/01/23 00:25 Lab Results 12/01/23 12/01/23 12/01/23 Range/Units 00:25 03:28 04:09 WBC 20.42 H (4.8-10.8) K/ul RBC 3.21 L (4.20-5.40) M/uL Hgb 10.4 L 10.0 L (12.0-16.0) g/dl Hct 31.1 L 30.2 L (37.0-47.0) % MCV 96.9 (80.0-100.0) fL MCH 32.4 (25.0-34.0) pg MCHC 33.4 (32.0-36.0) g/dL RDW Std Deviation 47.6 H (36.4-46.3) fL RDW Coeff of Susana 13.3 (11.5-14.5) % Plt Count 231 (130-400) K/uL MPV 10.8 (9.4-12.4) fL Immature Gran % (Auto) 1.2 % Neut % (Auto) 72.3 % Lymph % (Auto) 17.1 % [place] % (Auto) 7.5 % Eos % (Auto) 1.4 % Baso % (Auto) 0.5 % Neut # (Auto) 14.75 H (1.40-6.50) K/uL Lymph # (Auto) 3.50 H (1.20-3.40) K/uL [place] # (Auto) 1.53 H (0.11-0.59) K/uL Eos # (Auto) 0.29 (0.00-0.50) K/uL Baso # (Auto) 0.10 (0.00-0.20) K/uL Immature Gran # (Auto) 0.25 H (0.01-0.20) K/uL PT 11.4 (9.0-12.0) Seconds INR 1.1 (0.9-1.1) APTT 23 (21-31) Seconds PTT Ratio 0.9 Sodium 137 (136-145) mmol/L Potassium 4.7 (3.5-5.1) mmol/L Chloride 104 (98-107) mmol/L Carbon Dioxide 27 (21-32) mmol/L Anion Gap 6 (3-11) BUN 45 H (6-23) mg/dl Creatinine 0.80 (0.6-1.2) mg/dl Est Cr Clr Drug Dosing 49.8 ml/min Est GFR ( Amer) 77.9 ml/min Est GFR (Non-Af Amer) 67.2 ml/min BUN/Creatinine Ratio 56.3 H (10-20) Glucose 141 H (70-99(Fasting)) mg/dl Calcium 8.2 L (8.6-10.3) mg/dl Total Bilirubin 0.7 (0.2-1.0) mg/dl AST 21 (13-39) U/L ALT 30 (7-52) U/L Alkaline Phosphatase 58 (34-104) U/L Troponin I High Sens 8.9 (0-14) pg/ml Total Protein 5.2 L (6.0-8.3) gm/dl Albumin 3.1 L (3.4-5.0) gm/dl Globulin 2.1 L (2.5-4.0) gm/dl Albumin/Globulin Ratio 1.5 (0.9-2) Blood Type A Positive Antibody Screen NEGATIVE Administered Medications Cephalexin HCl (Cephalexin 500 Mg Cap) 500 mg PO BID FABI Stop: 12/02/23 21:01 Last Admin: 12/01/23 09:53 Dose: 500 mg Documented By: SHARON Sodium Chloride (Nss) 1,000 mls @ 80 mls/hr IV .[id number] FABI Stop: 12/01/23 18:29 Last Admin: 12/01/23 06:28 Dose: 80 mls/hr Documented By: ROBERT Pantoprazole Sodium 40 mg/ (Syringe) 10 mls @ 5 mls/min IV BID FABI Stop: 12/31/23 08:59 Last Admin: 12/01/23 08:38 Dose: 5 mls/min Documented By: SHARON Discontinued Medications Pantoprazole Sodium 40 mg/ (Syringe) 10 mls @ 5 mls/min IV NOW ONE Stop: 12/01/23 02:32 Last Admin: 12/01/23 03:45 Dose: 5 mls/min Documented By: GERARD Magnesium Sulfate/Dextrose (Magnesium Sulfate / D5w) 1 gm in 100 mls @ 50 mls/hr IV ONE ONE Stop: 12/01/23 14:47 Last Admin: 12/01/23 14:28 Dose: 50 mls/hr Documented By: SHARON Imaging Data Radiologist's Impression: Chest X-Ray 12/01/23 00:29 XR chest 1V not portable CLINICAL HISTORY: Chest pain, nonspecific TECHNIQUE: Single frontal radiograph of the chest was obtained. Comparison: Comparison is made to chest radiograph 10/25/2023 FINDINGS: No lines and tubes are seen. Calcified aortic knob is seen. The lungs are clear. No evidence of pleural effusion or pneumothorax. IMPRESSION: No acute chest disease. ACT 112: Negative or not required by law. Electronically signed by: José Antonio Pop M.D. 12/01/2023 10:32 AM Discharge Plan Visit Data Chief Complaint: Vomiting Stated Complaint: Coffee Ground Emesis, Syncope ED Provider: Tequila Amezquita Discharge Problem: Acute upper gastrointestinal bleeding, Acute hypotension Patient Disposition: Admitted As Inpatient Discharge Instructions Interventions: ED Discharge Assessment Last Done: 12/01/23 05:56
[2023-12-01] MEDS: PANTOprazole 40 MG in SYRINGE 0 ML IV ONE (03:45)
--- NOTE | 2023-12-01 04:02 | History & Physical Report ---
Date of Service December 01, 2023 Assessment & Plan (1) Status post left knee replacement: Plan GI Bleed -One episode of coffee ground emesis on evening of 11/29, at least two episodes of dark/black BMs in past few days -Suspect upper GI bleed, has recently been taking BID aspirin and Ketorolac since her knee replacement -Will keep NPO, IV Protonix BID. Zofran PRN. -Consult placed for GI, appreciate recommendations -Hgb baseline ~16.6, was 13.4 on day of discharge -Today Hgb at 10.0 -Will monitor q4h H&Hs, blood consent signed and in chart if needed -Hemodynamically stable at present, will monitor on telemetry S/P Left Knee Replacement -Was at [facility] for ongoing rehab after knee replacement -Will hold aspirin and Ketoralac at present due to concern for GI bleed -IV Tylenol PRN for pain. 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 Hypertension -Hold antihypertensives until able to take PO Hyperlipidemia -Hold statin until able to take PO Admit to med/tele Diet: NPO VTE Prophylaxis: SCDs, hold prophylaxis in setting of GI bleed Code Status: Full Code History of Present Illness Primary Care Provider: Juan Miguel Hargrove MD Emma Moreno is a 83 year-old female with past medical history significant for anxiety, GERD, hypercholesteremia, secondary polycythemia (managed with [id number] phlebotomy), s/p splenectomy, s/p left knee replacement who presents to the hospital from [facility] after an episode of coffee ground emesis. She reports that she had dinner this evening and was feeling well until about 9 or 10pm when she began to feel lightheaded and nauseated, had an episode of coffee ground emesis. [facility] also reported an approximately 30 second period where she was unresponsive. While at bedside, patient reports overall feeling "fine", she denies any current lightheadedness/dizziness/nausea. She notes that two days ago and again today she had a dark/blackish bowel movement. She notes that she has been taking Ketoralac PO for pain control as well as twice daily aspirin post- op. She denies any history of prior GI bleeds. States she has otherwise been feeling well since her knee surgery. Lives at home with her . ED Course: -CBC, CMP -EKG -IV Protonix 40mg Allergies Allergy/AdvReac Type Severity Reaction Status Date / Time codeine Allergy Unknown Nausea Verified 11/27/23 05:27 buspar AdvReac Intermediate "Did not Uncoded 11/27/23 05:27 like the way it made me feel" Home Medications Medication Instructions Recorded Confirmed Type cholecalciferol (vitamin D3) 50 2,000 unit PO DAILY 02/26/20 12/01/23 History mcg (2,000 unit) capsule psyllium [Metamucil] 1 cap PO Q OTHER DAY 12/12/22 12/01/23 History timolol maleate 0.5 % eye drops 1 drp ophthalmic (eye) DAILY 12/12/22 12/01/23 History oxybutynin chloride 5 mg tablet 5 mg PO DAILY #90 tabs 10/17/23 12/01/23 Rx cyanocobalamin (vitamin B-12) 50 50 mcg PO DAILY 10/24/23 12/01/23 History mcg tablet (Vitamin B-12) albuterol sulfate 90 mcg/actuation 2 puff inhalation Q6H PRN 11/05/23 12/01/23 Rx aerosol inhaler (Ventolin HFA) shortness of breath or wheezing #3 Inhalers acetaminophen 500 mg tablet 1,000 mg (2 x 500 mg) PO TID pain 11/25/23 12/01/23 Rx (Tylenol Extra Strength) 30 days #180 tabs aspirin 81 mg tablet,delayed 81 mg PO BID 45 days #90 tabs 11/25/23 12/01/23 Rx release (Preet Low Dose Aspirin) cefadroxil 500 mg capsule 500 mg PO DAILY 7 days #7 caps 11/25/23 12/01/23 Rx ketorolac 10 mg tablet 10 mg PO Q6 pain 5 days #20 tabs 11/25/23 12/01/23 Rx sennosides 8.6 mg tablet (Senokot) 8.6 mg PO BID prevent constipation 11/25/23 12/01/23 Rx 14 days #28 tabs tramadol 50 mg tablet 50 - 100 mg (1 - 2 x 50 mg) PO Q6 11/25/23 12/01/23 Rx PRN pain #40 tabs amlodipine 10 mg tablet 10 mg PO DAILY 12/01/23 12/01/23 History amoxicillin 500 mg capsule 2,000 mg PO ONCE PRN prior to 12/01/23 12/01/23 History dental appt atorvastatin 10 mg tablet 10 mg PO HS 12/01/23 12/01/23 History loratadine 10 mg tablet 10 mg PO DAILY PRN Allergy Symptoms 12/01/23 12/01/23 History losartan 50 mg tablet 50 mg PO DAILY 12/01/23 12/01/23 History ondansetron 4 mg disintegrating 4 mg PO Q4 PRN nausea 12/01/23 12/01/23 History tablet Past Med/Surg History Problem List (Updated 12/02/23 @ 11:32 by Shey Lugo MD) Acute blood loss anemia Acute hypotension (Acute) Acute upper gastrointestinal bleeding (Acute) Hematemesis Status post left knee replacement Anxiety Left knee DJD Abnormal mammogram of right breast Urinary incontinence Smell and taste disorder Vitamin D deficiency Chronic rhinitis (Acute) External hemorrhoids (Acute) Gastroesophageal reflux disease without esophagitis (Acute) Hydronephrosis of right kidney (Acute) Hypercholesterolemia (Acute) Obstructive sleep apnea (adult) (pediatric) (Chronic) Osteopenia (Acute) Medical History Essential hypertension Osteopenia Low back pain Hypercholesteremia 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, hx chemo (completed ) and s/p multiple surgical interventions (most recently 2019) Chronic rhinitis Arthritis 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 Follows with [facility] oncology Secondary polycythemia Follows with [facility] heme/onc (Dr Gonzalez) Monitored every 3 mos- PRN phlebotomy (most recent 09/2023) History of COVID-19 (2022) Symptoms resolved CRISTINA (obstructive sleep apnea) "No device needed" per patient Intrinsic asthma GERD (gastroesophageal reflux disease) Anxiety Conductive hearing loss Surgical History S/P hernia repair S/P total knee arthroplasty Right S/P splenectomy S/P bilateral salpingo-oophorectomy S/P right hemicolectomy S/P hysterectomy S/P eye surgery S/P exploratory laparotomy S/P cholecystectomy Family History Brother Myocardial infarction Stroke Brother Myocardial infarction Stroke Mother , AGE 68 Myocardial infarction Parents Stroke Father , AGE 87 Aneurysm of femoral artery Parents Osteoarthritis Aunt Colorectal cancer Grandfather (Maternal) Stroke Denies family history of Ovarian cancer Breast cancer Social History Smoking Status: Never smoker Second Hand Exposure: No; Do You Dip or Chew Tobacco: No; Hx Alcohol Use: Yes Alcohol type: wine Alcohol Intake Frequency Comment: SOCAILLY Hx Substance Use: No Preferred Language: French Communication Ability: Effective Visual Impairment: No Limitations Hearing Ability: Normal Barber Required: No Beliefs That Will Affect Care: None marital status: Current Living Situation: Spouse current occupational status: retired Feels Safe at Home: Yes Safety Concerns: Feels Safe At This Time Dental Care, Regularly: Yes Physical Activity Frequency: Daily Physical Activity Frequency Comment: yoga, walk Seatbelt Use: always Sunscreen Use: Yes Assistive Devices: None Review of Systems Review of Systems: As per above Physical Exam Constitutional: WD/WN, vitals as above Eyes: + anicteric sclerae; no conjunctival abn ormality ENMT: Ears: no external ear abnormality Nose: no external nose abnormality Moist mucous membranes Respiratory: normal respiratory effort, lungs clear to auscultation Cardiovascular: Rate/Rhythm: regular rate and regular rhythm Extremities: no edema Gastrointestinal (Abdomen): Abdomen soft, nontender and nondistended Musculoskeletal: NINFA bandage wrapped around left knee, able to move all limbs independently Skin: no rashes, warm and dry Psychiatric: A+Ox3, euthymic affect Results & Data Results & Data Vital Signs (Past 12 Hours) Vital Signs Temp Pulse Pulse Resp BP BP Pulse Ox 12/01/23 03:02 83 18 121/85 94 12/01/23 02:30 73 18 132/80 97 12/01/23 02:06 69 18 114/59 L 94 12/01/23 02:00 70 18 89/50 L 95 12/01/23 01:47 72 22 95/51 L 94 12/01/23 01:45 88 L 12/01/23 01:34 75 20 97/57 L 90 12/01/23 00:32 92 09/14/24 00:32 92 12/01/23 00:32 36.4 C L 78 22 121/65 92 12/01/23 00:21 73 O2 Del Method O2 Flow Rate 12/01/23 03:02 Nasal Cannula 2 12/01/23 02:30 Nasal Cannula 2 12/01/23 02:06 Nasal Cannula 2 12/01/23 02:00 Nasal Cannula 2 12/01/23 01:47 Nasal Cannula 2 12/01/23 01:45 Room Air, Nasal Cannula 12/01/23 01:34 Room Air 12/01/23 00:32 Room Air 12/01/23 00:32 Room Air 12/01/23 00:32 Room Air 12/01/23 00:21 Supervising Physician Co-Signing Physician Notes Attending addendum: I have physically seen this patient, have supervised the medical residents activities, and agree with the H&P unless as otherwise noted. Assessment and Plan: GI bleed- 1 episode of coffee-ground emesis 11/29, and at least 2 episodes of dark tarry stools Hold aspirin and ketorolac that she has been on since knee replacement N.p.o. Protonix IV as noted H&H every 4 hours Hemoglobin 10.4 at admission, with most recent 13.4 History of polycythemia- Follows with hematology Baseline hemoglobin is typically 8 and 16.5 range, making hemoglobin of 10 more significant from a bleeding perspective Hypertension- Holding amlodipine and losartan due to relatively low blood pressure Status post left knee replacement- Acetaminophen 1 g IV every 8 hours as needed for mild pain or fever PT/OT consulted Resident Activity Tracking Resident Involvement: Resident Care Provided Care Provided: Adult [facility]
[2023-12-01 04:28] LABS: Hematocrit (blood only) 30.2 % (37.0-47.0)
[2023-12-01] MEDS ORDERED: ONDANSETRON INJ 2 MG/ML 2 ML VIAL IV PRN (06:25)
[2023-12-01] MEDS: SODIUM CHLORIDE 0.9% 1,000 ML IV SCH (06:28)
[2023-12-01 07:05] LABS: Hematocrit (blood only) 29.6 % (37.0-47.0); Hemoglobin 9.9 g/dl (12.0-16.0)
[2023-12-01] MEDS: PANTOprazole 40 MG in SYRINGE 0 ML IV SCH (08:38)
--- NOTE | 2023-12-01 09:45 | Gastrointestinal Consultation ---
Date of Consultation December 01, 2023 Assessment & Plan (1) Hematemesis: Pleasant woman who went home on NSAIDs after TKR who had an episode of hematemesis as well as melena. She likely needs EGD but since she just went through TKR would like to avoid it if possible. I suspect she has NSAID related ulcer disease or gastritis causing her problems but it is certainly possible she has an UGI malignancy as well. After discussion we have decided to see how she does today and what happens with her hemoglobin. If it drops through the day and into tomorrow we will do EGD tomorrow. If it remains stable or starts rising then we will treat her empirically for ulcer disease. She agrees with this plan and appreciates the chance to avoid further procedures. History of Present Illness Reason for Consultation: hematemesis Attending Physician: Edgar Middleton MD History of Present Illness 83 year old female recently status post left TKR who went home of twice daily ASA and ketorolac. She was doing well until Sunday evening after dinner she felt nauseated and vomited what she was told was liquid with "black stuff" in it. She had had two large "dark brown" bowel movements on . She denies abdominal pain and as I am seeing her she feels fine. She is having some loose black stools now. She has never had bleeding before. She carries the diagnosis of esophagitis but says she doesn't take anything for heartburn as she doesn't have it. She does not think she has ever had an EGD and her last colonoscopy kailyn says was about six years ago. Her hemoglobin was 9.9 on admit and was about 13 on discharge several days ago. Her only other GI history was a history of "pseudomyxoma peritonei" and resultant surgery for that in 2008--partial colectomy, cholecystectomy, splenectomy, omentectomy". Allergies Allergy/AdvReac Type Severity Reaction Status Date / Time codeine Allergy Unknown Nausea Verified 11/27/23 05:27 buspar AdvReac Intermediate "Did not Uncoded 11/27/23 05:27 like the way it made me feel" Home Medications Medication Instructions Recorded Confirmed Type cholecalciferol (vitamin D3) 50 2,000 unit PO DAILY 02/26/20 12/01/23 History mcg (2,000 unit) capsule psyllium [Metamucil] 1 cap PO Q OTHER DAY 12/12/22 12/01/23 History timolol maleate 0.5 % eye drops 1 drp ophthalmic (eye) DAILY 12/12/22 12/01/23 History oxybutynin chloride 5 mg tablet 5 mg PO DAILY #90 tabs 10/17/23 12/01/23 Rx cyanocobalamin (vitamin B-12) 50 50 mcg PO DAILY 10/24/23 12/01/23 History mcg tablet (Vitamin B-12) albuterol sulfate 90 mcg/actuation 2 puff inhalation Q6H PRN 11/05/23 12/01/23 Rx aerosol inhaler (Ventolin HFA) shortness of breath or wheezing #3 Inhalers acetaminophen 500 mg tablet 1,000 mg (2 x 500 mg) PO TID pain 11/25/23 12/01/23 Rx (Tylenol Extra Strength) 30 days #180 tabs aspirin 81 mg tablet,delayed 81 mg PO BID 45 days #90 tabs 11/25/23 12/01/23 Rx release (Preet Low Dose Aspirin) cefadroxil 500 mg capsule 500 mg PO DAILY 7 days #7 caps 11/25/23 12/01/23 Rx ketorolac 10 mg tablet 10 mg PO Q6 pain 5 days #20 tabs 11/25/23 12/01/23 Rx sennosides 8.6 mg tablet (Senokot) 8.6 mg PO BID prevent constipation 11/25/23 12/01/23 Rx 14 days #28 tabs tramadol 50 mg tablet 50 - 100 mg (1 - 2 x 50 mg) PO Q6 11/25/23 12/01/23 Rx PRN pain #40 tabs amlodipine 10 mg tablet 10 mg PO DAILY 12/01/23 12/01/23 History amoxicillin 500 mg capsule 2,000 mg PO ONCE PRN prior to 12/01/23 12/01/23 History dental appt atorvastatin 10 mg tablet 10 mg PO HS 12/01/23 12/01/23 History loratadine 10 mg tablet 10 mg PO DAILY PRN Allergy Symptoms 12/01/23 12/01/23 History losartan 50 mg tablet 50 mg PO DAILY 12/01/23 12/01/23 History ondansetron 4 mg disintegrating 4 mg PO Q4 PRN nausea 12/01/23 12/01/23 History tablet Patient History Medical History Essential hypertension Osteopenia Low back pain Hypercholesteremia 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, hx chemo (completed ) and s/p multiple surgical interventions (most recently 2019) Chronic rhinitis Arthritis 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 Follows with [facility] oncology Secondary polycythemia Follows with [facility] heme/onc (Dr Gonzalez) Monitored every 3 mos- PRN phlebotomy (most recent 09/2023) History of COVID-19 (2022) Symptoms resolved CRISTINA (obstructive sleep apnea) "No device needed" per patient Intrinsic asthma GERD (gastroesophageal reflux disease) Anxiety Conductive hearing loss Surgical History S/P hernia repair S/P total knee arthroplasty Right S/P splenectomy S/P bilateral salpingo-oophorectomy S/P right hemicolectomy S/P hysterectomy S/P eye surgery S/P exploratory laparotomy S/P cholecystectomy Family History Brother Myocardial infarction Stroke Brother Myocardial infarction Stroke Mother , AGE 68 Myocardial infarction Parents Stroke Father , AGE 87 Aneurysm of femoral artery Parents Osteoarthritis Aunt Colorectal cancer Grandfather (Maternal) Stroke Denies family history of Ovarian cancer Breast cancer Social History Smoking Status: Never smoker Second Hand Exposure: No; Do You Dip or Chew Tobacco: No; Hx Alcohol Use: Yes Alcohol type: wine Alcohol Intake Frequency Comment: SOCAILLY Hx Substance Use: No Preferred Language: Mohawk Communication Ability: Effective Visual Impairment: No Limitations Hearing Ability: Normal Retail Department Supervisor Required: No Beliefs That Will Affect Care: None marital status: Current Living Situation: Spouse current occupational status: retired Feels Safe at Home: Yes Safety Concerns: Feels Safe At This Time Dental Care, Regularly: Yes Physical Activity Frequency: Daily Physical Activity Frequency Comment: yoga, walk Seatbelt Use: always Sunscreen Use: Yes Assistive Devices: Walker Review of Systems Review of Systems: All systems reviewed & are unremarkable except as noted in HPI & below Physical Exam Physical Exam: Very pleasant in no distress Constitutional: WD/WN, vitals as above Neck: trachea midline, no thyromegaly Respiratory: normal respiratory effort, lungs clear to auscultation Cardiovascular: RRR, no murmur, no edema Gastrointestinal (Abdomen): normal bowel sounds, soft, nontender, no hepatosplenomegaly Results & Data Vital Signs (Past 12 Hours) Vital Signs Temp Pulse Pulse Pulse Pulse Resp BP 12/01/23 08:53 37.1 C 77 78 18 12/01/23 06:44 12/01/23 06:28 36.7 C 80 18 12/01/23 05:36 71 18 12/01/23 05:00 74 18 12/01/23 04:38 76 12/01/23 04:30 79 18 12/01/23 04:00 78 18 12/01/23 03:30 83 20 12/01/23 03:02 83 18 12/01/23 02:30 73 18 12/01/23 02:06 69 18 12/01/23 02:00 70 18 12/01/23 01:47 72 12/01/23 01:45 12/01/23 01:34 75 20 12/01/23 00:32 12/01/23 00:32 12/01/23 00:32 36.4 C L 78 22 121/65 12/01/23 00:21 73 BP Pulse Ox O2 Del Method O2 Flow Rate 12/01/23 08:53 124/88 96 Nasal Cannula 12/01/23 06:44 Nasal Cannula 2 12/01/23 06:28 113/71 97 Oxymask 2 12/01/23 05:36 109/68 96 Nasal Cannula 2 12/01/23 05:00 123/56 L 97 Nasal Cannula 2 12/01/23 04:38 12/01/23 04:30 122/60 96 Nasal Cannula 2 12/01/23 04:00 118/64 96 Nasal Cannula 2 12/01/23 03:30 124/78 96 Nasal Cannula 2 12/01/23 03:02 121/85 94 Nasal Cannula 2 12/01/23 02:30 132/80 97 Nasal Cannula 2 12/01/23 02:06 114/59 L 94 Nasal Cannula 2 12/01/23 02:00 89/50 L 95 Nasal Cannula 2 12/01/23 01:47 95/51 L 94 Nasal Cannula 2 12/01/23 01:45 88 L Room Air, Nasal Cannula 12/01/23 01:34 97/57 L 90 Room Air 12/01/23 00:32 92 Room Air 12/01/23 00:32 92 Room Air 12/01/23 00:32 92 Room Air 12/01/23 00:21 Laboratory Results 12/01/23 12/01/23 12/01/23 Range/Units Unknown 06:35 04:09 WBC (4.8-10.8) K/ul RBC (4.20-5.40) M/uL Hgb 9.9 L 10.0 L (12.0-16.0) g/dl Hct 29.6 L 30.2 L (37.0-47.0) % MCV (80.0-100.0) fL MCH (25.0-34.0) pg MCHC (32.0-36.0) g/dL RDW Std Deviation (36.4-46.3) fL RDW Coeff of Susana (11.5-14.5) % Plt Count (130-400) K/uL MPV (9.4-12.4) fL Immature Gran % (Auto) % Neut % (Auto) % Lymph % (Auto) % [place] % (Auto) % Eos % (Auto) % Baso % (Auto) % Neut # (Auto) (1.40-6.50) K/uL Lymph # (Auto) (1.20-3.40) K/uL Denton # (Auto) (0.11-0.59) K/uL Eos # (Auto) (0.00-0.50) K/uL Baso # (Auto) (0.00-0.20) K/uL Immature Gran # (Auto) (0.01-0.20) K/uL PT (9.0-12.0) Seconds INR (0.9-1.1) APTT (21-31) Seconds PTT Ratio Sodium (136-145) mmol/L Potassium (3.5-5.1) mmol/L Chloride (98-107) mmol/L Carbon Dioxide (21-32) mmol/L Anion Gap (3-11) BUN (6-23) mg/dl Creatinine (0.6-1.2) mg/dl Est Cr Clr Drug Dosing ml/min Est GFR ( Amer) ml/min Est GFR (Non-Af Amer) ml/min BUN/Creatinine Ratio (10-20) Glucose (70-99(Fasting)) mg/dl Calcium (8.6-10.3) mg/dl Total Bilirubin (0.2-1.0) mg/dl AST (13-39) U/L ALT (7-52) U/L Alkaline Phosphatase (34-104) U/L Troponin I High Sens (0-14) pg/ml Total Protein (6.0-8.3) gm/dl Albumin (3.4-5.0) gm/dl Globulin (2.5-4.0) gm/dl Albumin/Globulin Ratio (0.9-2) Nasal Screen MRSA (PCR) Negative (Negative) Blood Type Antibody Screen 12/01/23 12/01/23 Range/Units 03:28 00:25 WBC 20.42 H (4.8-10.8) K/ul RBC 3.21 L (4.20-5.40) M/uL Hgb 10.4 L (12.0-16.0) g/dl Hct 31.1 L (37.0-47.0) % MCV 96.9 (80.0-100.0) fL MCH 32.4 (25.0-34.0) pg MCHC 33.4 (32.0-36.0) g/dL RDW Std Deviation 47.6 H (36.4-46.3) fL RDW Coeff of Susana 13.3 (11.5-14.5) % Plt Count 231 (130-400) K/uL MPV 10.8 (9.4-12.4) fL Immature Gran % (Auto) 1.2 % Neut % (Auto) 72.3 % Lymph % (Auto) 17.1 % Denton % (Auto) 7.5 % Eos % (Auto) 1.4 % Baso % (Auto) 0.5 % Neut # (Auto) 14.75 H (1.40-6.50) K/uL Lymph # (Auto) 3.50 H (1.20-3.40) K/uL Denton # (Auto) 1.53 H (0.11-0.59) K/uL Eos # (Auto) 0.29 (0.00-0.50) K/uL Baso # (Auto) 0.10 (0.00-0.20) K/uL Immature Gran # (Auto) 0.25 H (0.01-0.20) K/uL PT 11.4 (9.0-12.0) Seconds INR 1.1 (0.9-1.1) APTT 23 (21-31) Seconds PTT Ratio 0.9 Sodium 137 (136-145) mmol/L Potassium 4.7 (3.5-5.1) mmol/L Chloride 104 (98-107) mmol/L Carbon Dioxide 27 (21-32) mmol/L Anion Gap 6 (3-11) BUN 45 H (6-23) mg/dl Creatinine 0.80 (0.6-1.2) mg/dl Est Cr Clr Drug Dosing 49.8 ml/min Est GFR ( Amer) 77.9 ml/min Est GFR (Non-Af Amer) 67.2 ml/min BUN/Creatinine Ratio 56.3 H (10-20) Glucose 141 H (70-99(Fasting)) mg/dl Calcium 8.2 L (8.6-10.3) mg/dl Total Bilirubin 0.7 (0.2-1.0) mg/dl AST 21 (13-39) U/L ALT 30 (7-52) U/L Alkaline Phosphatase 58 (34-104) U/L Troponin I High Sens 8.9 (0-14) pg/ml Total Protein 5.2 L (6.0-8.3) gm/dl Albumin 3.1 L (3.4-5.0) gm/dl Globulin 2.1 L (2.5-4.0) gm/dl Albumin/Globulin Ratio 1.5 (0.9-2) Nasal Screen MRSA (PCR) (Negative) Blood Type A Positive Antibody Screen NEGATIVE
[2023-12-01] MEDS: cephALEXin 500 MG CAP PO SCH (09:53)
[2023-12-01 10:32] LABS: Hematocrit (blood only) 30.5 % (37.0-47.0); Hemoglobin 10.1 g/dl (12.0-16.0)
--- NOTE | 2023-12-01 10:33 | XRay Report ---
XR chest 1V not portable CLINICAL HISTORY: Chest pain, nonspecific TECHNIQUE: Single frontal radiograph of the chest was obtained. Comparison: Comparison is made to chest radiograph 10/25/2023 FINDINGS: No lines and tubes are seen. Calcified aortic knob is seen. The lungs are clear. No evidence of pleur al effusion or pneumothorax. IMPRESSION: No acute chest disease. ACT 112: Negative or not required by law. Electronically signed by: José Antonio Pop M.D. 12/01/2023 10:32 AM
--- NOTE | 2023-12-01 12:38 | Communication Note ---
Date of Service: December 01, 2023 Please refer to the H&P dictated earlier this morning for details of presentation on admission. In brief, the patient had a left knee replacement surgery on 11/26 and went to [facility] for rehab. She had been taking Toradol p.o. for pain control twice daily along with aspirin. She presented to the hospital with an episode of coffee-ground emesis. On further questioning she revealed black stools in the last 2 days. She was admitted for GI bleed. She has been started on a Protonix IV. She was seen in consultation by GI. This is most likely NSAID related ulcer disease or gastritis. The plan is to monitor her H&H. If continues to drop, GI will plan to do an endoscopy tomorrow. Hemodynamically stable. H&H 10.1 now from 13.4 3 days ago..
[2023-12-01 14:27] LABS: Hematocrit (blood only) 28.7 % (37.0-47.0); Hemoglobin 9.9 g/dl (12.0-16.0)
[2023-12-01] MEDS: MAGNESIUM SULFATE / D5W 1 GM/100 ML BAG IV ONE (14:28)
[2023-12-01 19:27] LABS: Hematocrit (blood only) 26.4 % (37.0-47.0); Hemoglobin 9.1 g/dl (12.0-16.0)
[2023-12-01] MEDS: TIMOLOL MALEATE 0.5% OP SOLN 5 ML BTL OPB SCH (20:59)
[2023-12-02 06:09] LABS: Hematocrit (blood only) 25.8 % (37.0-47.0); Hemoglobin 8.7 g/dl (12.0-16.0); Mean Corpuscular Hemoglobin 32.7 pg (25.0-34.0); Mean Corpuscular Hgb Conc 33.7 g/dL (32.0-36.0); Mean Platelet Volume 10.3 fL (9.4-12.4); Nucleated RBC # (auto) 0.02 K/uL (0.00-0.12); Nucleated RBC % (auto) 0.1 %; Platelet Count 254 K/uL (130-400); RDW Coefficient of Variation 13.6 % (11.5-14.5); RDW Standard Deviation 48.2 fL (36.4-46.3); Red Blood Count 2.66 M/uL (4.20-5.40); White Blood Count 15.92 K/ul (4.8-10.8)
[2023-12-02 06:33] LABS: Albumin Globulin Ratio 1.5 (0.9-2); Albumin Level 3.1 gm/dl (3.4-5.0); Bilirubin,Total 0.9 mg/dl (0.2-1.0); Calcium 8.2 mg/dl (8.6-10.3); Creatinine Clr Calc Pharmacy 65.6 ml/min; Est GFR (African American) 96.9 ml/min; Est GFR (Non-African American) 83.6 ml/min; Globulin 2.1 gm/dl (2.5-4.0); Potassium 3.8 mmol/L (3.5-5.1); Total Protein 5.2 gm/dl (6.0-8.3)
--- NOTE | 2023-12-02 08:27 | Gastroenterology Progress Note ---
Date of Service December 02, 2023 Assessment & Plan (1) Acute upper gastrointestinal bleeding: Plan: With continued fall in hemoglobin will do EGD. I suspect she has stopped bleeding but this will tell us for sure. If no blood in stomach and problem in stomach not a high risk for rebleeding she could possibly go home today if she tolerates regular diet. If EGD is completely clean then she may have to have colonoscopy for anemia although she did present with hematemesis. Procedure and risks discussed with patient, she agrees. Admission and Anticipated Discharge Date Admission Date: December 01, 2023 Subjective Feels pretty well. H/H have dropped to 8.7. Had blood with bowel movement yesterday. Physical Exam Physical Exam: She looks comfortable Constitutional: WD/WN, vitals as above Results & Data Vital Signs (Past 12 Hours) Vital Signs Temp Pulse Pulse Resp BP Pulse Ox O2 Del Method 12/02/23 03:40 36.7 C 77 16 92/56 L 97 Room Air 12/02/23 00:43 71 12/01/23 23:37 36.5 C 70 12 122/69 94 Nasal Cannula 12/01/23 21:33 Nasal Cannula O2 Flow Rate 12/02/23 03:40 12/02/23 00:43 12/01/23 23:37 1.5 12/01/23 21:33 2
[2023-12-02] MEDS: SODIUM CHLORIDE 0.9% 1,000 ML IV SCH (09:19)
[2023-12-02] MEDS ORDERED: fentaNYL citrate PF 100 MCG/2 ML VIAL ONE (10:00)
--- NOTE | 2023-12-02 10:05 | Anesthesiology Consultation ---
Date of Service December 02, 2023 Assessment & Plan (1) Encounter for pre-operative examination: Chart Review Chart Review: Acceptable Risk for Surgery and Patient NOT seen in Pre Admission Testing Consults Requested none History Surgery Operation Date: 12/02/23 10:30 Proposed Procedures p Esophagogastroduodenoscopy - Hemant Bacon Jr, MD Height/Weight Height: 5 ft 2 in Weight: 73.8 kg Allergies Allergy/AdvReac Type Severity Reaction Status Date / Time codeine Allergy Unknown Nausea Verified 11/27/23 05:27 buspar AdvReac Intermediate "Did not Uncoded 11/27/23 05:[address] way it made me feel" Medications Home Medications Medication Instructions Recorded Confirmed Last Taken cholecalciferol (vitamin D3) 50 2,000 unit PO DAILY 02/26/20 12/01/23 11/26/23 08:00 mcg (2,000 unit) capsule psyllium [Metamucil] 1 cap PO Q OTHER DAY 12/12/22 12/01/23 11/23/23 12:00 timolol maleate 0.5 % eye drops 1 drp ophthalmic (eye) DAILY 12/12/22 12/01/23 11/26/23 21:00 oxybutynin chloride 5 mg tablet 5 mg PO DAILY #90 tabs 10/17/23 12/01/23 11/25/23 22:00 cyanocobalamin (vitamin B-12) 50 50 mcg PO DAILY 10/24/23 12/01/23 11/26/23 08:00 mcg tablet (Vitamin B-12) albuterol sulfate 90 mcg/actuation 2 puff inhalation Q6H PRN 11/05/23 12/01/23 Unknown aerosol inhaler (Ventolin HFA) shortness of breath or wheezing #3 Inhalers acetaminophen 500 mg tablet 1,000 mg (2 x 500 mg) PO TID pain 11/25/23 12/01/23 Unknown (Tylenol Extra Strength) 30 days #180 tabs aspirin 81 mg tablet,delayed 81 mg PO BID 45 days #90 tabs 11/25/23 12/01/23 Unknown release (Preet Low Dose Aspirin) cefadroxil 500 mg capsule 500 mg PO DAILY 7 days #7 caps 11/25/23 12/01/23 Unknown ketorolac 10 mg tablet 10 mg PO Q6 pain 5 days #20 tabs 11/25/23 12/01/23 Unknown sennosides 8.6 mg tablet (Senokot) 8.6 mg PO BID prevent constipation 11/25/23 12/01/23 Unknown 14 days #28 tabs tramadol 50 mg tablet 50 - 100 mg (1 - 2 x 50 mg) PO Q6 11/25/23 12/01/23 Unknown PRN pain #40 tabs amlodipine 10 mg tablet 10 mg PO DAILY 12/01/23 12/01/23 Unknown amoxicillin 500 mg capsule 2,000 mg PO ONCE PRN prior to 12/01/23 12/01/23 Unknown dental appt atorvastatin 10 mg tablet 10 mg PO HS 12/01/23 12/01/23 Unknown loratadine 10 mg tablet 10 mg PO DAILY PRN Allergy Symptoms 12/01/23 12/01/23 Unknown losartan 50 mg tablet 50 mg PO DAILY 12/01/23 12/01/23 Unknown ondansetron 4 mg disintegrating 4 mg PO Q4 PRN nausea 12/01/23 12/01/23 Unknown tablet Active Medications Generic Name Dose Route Start Last Admin Trade Name Freq PRN Reason Stop Dose Admin Cephalexin HCl 500 mg 12/01/23 09:00 12/02/23 07:39 Cephalexin 500 Mg Cap PO 12/02/23 21:01 500 mg BID FABI Administration Pantoprazole Sodium 40 mg/ 10 mls @ 5 mls/min 12/01/23 09:00 12/02/23 07:39 Syringe IV 12/31/23 08:59 5 mls/min BID FABI Administration Sodium Chloride 1,000 mls @ 80 mls/hr 12/02/23 08:00 12/02/23 09:19 Nss IV 01/01/24 07:59 80 mls/hr .[id number] FABI Administration Timolol Maleate 1 drops 12/01/23 21:00 12/01/23 20:59 Timolol Maleate 0.5% Op Soln 5 Ml Btl OPB 12/31/23 20:59 1 drops HS FABI Administration Past Medical History Medical History Essential hypertension Osteopenia Low back pain Hypercholesteremia 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, hx chemo (completed ) and s/p multiple surgical interventions (most recently 2019) Chronic rhinitis Arthritis 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 Follows with [facility] oncology Secondary polycythemia Follows with [facility] heme/onc (Dr Gonzalez) Monitored every 3 mos- PRN phlebotomy (most recent 09/2023) History of COVID-19 (2022) Symptoms resolved CRISTINA (obstructive sleep apnea) "No device needed" per patient Intrinsic asthma GERD (gastroesophageal reflux disease) Anxiety Conductive hearing loss Past Family History Family History Brother Myocardial infarction Stroke Brother Myocardial infarction Stroke Mother , AGE 68 Myocardial infarction Parents Stroke Father , AGE 87 Aneurysm of femoral artery Parents Osteoarthritis Aunt Colorectal cancer Grandfather (Maternal) Stroke Denies family history of Ovarian cancer Breast cancer Past Surgical History Surgical History S/P hernia repair S/P total knee arthroplasty Right S/P splenectomy S/P bilateral salpingo-oophorectomy S/P right hemicolectomy S/P hysterectomy S/P eye surgery S/P exploratory laparotomy S/P cholecystectomy Social History Smoking Status: Never smoker Do You Dip or Chew Tobacco: No Hx Alcohol Use: Yes Alcohol type: wine alcohol intake frequency: a few times a week Hx Substance Use: No substance use type: does not use Physical Exam Vital Signs Last Vital Signs Temp 36.6 C 12/02/23 08:20 Pulse 80 12/02/23 08:20 Resp 18 12/02/23 08:20 BP 128/64 12/02/23 08:20 Pulse Ox 91 12/02/23 08:20 O2 Del Method Room Air 12/02/23 08:20 O2 Flow Rate 1.5 12/01/23 23:37 Testing Laboratory Results 12/02/23 05:44 12/02/23 05:44 PT 11.4 Seconds (9.0-12.0) 12/01/23 00:25 INR 1.1 (0.9-1.1) 12/01/23 00:25 APTT 23 Seconds (21-31) 12/01/23 00:25 Blood Type A Positive 12/01/23 03:28 Antibody Screen NEGATIVE 12/01/23 03:28 Other Testing Testing Electrocardiogram Date: 08/29/23 NSR at 63bpm. LAD. LVH with QRS widening. Cannot r/o septal infarct, age undetermined. Echo 10/01/23* Chest X-Ray Date: 10/25/23 FINDINGS: Elevation/eventration of the right hemidiaphragm is unchanged. Lungs are clear. There is no pneumothorax or pleural effusion. Cardiac size is normal. Mediastinal contours are normal. There is no evidence for pulmonary edema. IMPRESSION: No acute cardiopulmonary findings. No change in appearance of the chest. Echocardiogram Date: 10/01/23 EF 60-65%. No RWMA. Mild cLVH. Mild LAD. Mild MR. Mild to moderate TR. Mild IA. Normal estimated RVSP.
[2023-12-02] MEDS ORDERED: ONDANSETRON INJ 2 MG/ML 2 ML VIAL IV PRN (10:23)
[2023-12-02] MEDS ORDERED: ATROPINE SULFATE 0.1 MG/ML 10ML SYR IV PRN (10:23)
[2023-12-02] MEDS ORDERED: ePHEDrine sulfate 50 MG/ML AMP IV PRN (10:23)
[2023-12-02] MEDS ORDERED: fentaNYL citrate PF 100 MCG/2 ML VIAL IV PRN (10:23)
[2023-12-02] MEDS ORDERED: ONDANSETRON INJ 2 MG/ML 2 ML VIAL ONE (10:38)
[2023-12-02] MEDS ORDERED: PHENYLEPHRINE 100MCG/ML 10ML SYR IV ONE (10:38)
[2023-12-02] MEDS ORDERED: SUCCINYLCHOLINE CHLORIDE 20 MG/ML 10 ML VIAL IV ONE (10:38)
[2023-12-02] MEDS ORDERED: PROPOFOL IV EMULSION 10 MG/ML 20 ML VIAL IV ONE (10:38)
[2023-12-02] MEDS ORDERED: LIDOCAINE 2% 2 ML VIAL/AMP(20MG/ML) INFIL ONE (10:38)
--- NOTE | 2023-12-02 10:42 | Communication Note ---
Date of Service: December 02, 2023 EGD shows fairly large prepyloric ulcer with pigmented base, no active bleeding. No blood in examined part of UGI tract. Would slowly advance diet and if no further bleeding she should be able to go home tomorrow. She will need follow up EGD in three months to document healing.
--- NOTE | 2023-12-02 10:52 | GI REPORT ---
[facility] Patient: ALEC BEASLEY : 1940 Sex at : Female Age: 83 Years Procedure: Upper GI endoscopy Date: 12/02/2023 Attending Physician: Hemant Bacon MD Referring MD: Juan Miguel Sorenson; Shey Lugo MD Indications: - Hematemesis Medications: - General Anesthesia - See the Anesthesia note for documentation of the administered medications Complications: - No immediate complications. Estimated Blood Loss: - Estimated blood loss: None. Procedure: - ASA Grade Assessment: III - A patient with severe systemic disease. - The egd scope was introduced through the mouth and advanced to the second part of the duodenum. - The upper GI endoscopy was accomplished without difficulty. - The patient tolerated the procedure well. Findings: - The examined esophagus was normal. - One non-bleeding cratered gastric ulcer with pigmented material was found in the prepyloric region of the stomach. The lesion was 10 mm in largest dimension. - The exam of the stomach was otherwise normal. - The examined duodenum was normal. - There was no blood seen in the stomach or the duodenum. There was no active bleeding or blood tinged fluid noted Impression: - Normal esophagus. - Non-bleeding gastric ulcer with pigmented material. - Normal examined duodenum. - There was no blood seen in the stomach or the duodenum. There was no active bleeding or blood tinged fluid noted - No specimens collected. Recommendation: - Return patient to hospital [facility] for ongoing care. - Advance diet as tolerated. - Continue present medications. Procedure Code(s): - 83614, Esophagogastroduodenoscopy, flexible, transoral; diagnostic, including collection of specimen(s) by brushing or washing, when performed (separate procedure) Diagnosis Code(s): - K92.0, Hematemesis - K25.9, Gastric ulcer, unspecified as acute or chronic, without hemorrhage or perforation CPT(R) - 2023 copyright [employer]. All Rights Reserved. The CPT codes, CCI edits and ICD codes generated are intended as suggestions and were generated based on input data. These codes are preliminary and upon medical coder review may be revised to meet current compliance and payer requirements. The provider is responsible for the final determination of appropriate codes, and modifiers. Dr. Hemant Bacon MD This document has been electronically signed. Note Initiated:12/02/2023 Note Completed:12/02/2023 10:52 AM \\[facility], incBL[id number]
--- NOTE | 2023-12-02 10:58 | Anesthesiology Progress Note ---
Date of Service December 02, 2023 Anesthesia Post Procedure Vital Signs Vital Signs: Temp Pulse Pulse Pulse Resp BP BP 12/02/23 10:55 69 18 118/61 12/02/23 10:45 36.8 C 68 21 130/55 L 12/02/23 08:20 36.6 C 80 18 128/64 12/02/23 03:40 36.7 C 77 16 92/56 L 12/02/23 00:43 71 12/01/23 23:37 36.5 C 70 12 122/69 12/01/23 21:33 12/01/23 19:54 36.8 C 75 14 127/66 12/01/23 16:08 36.6 C 74 16 120/72 12/01/23 14:40 75 12/01/23 13:20 37.2 C 68 18 128/68 Pulse Ox O2 Del Method O2 Flow Rate 12/02/23 10:55 96 Nasal Cannula 3 12/02/23 10:45 94 Nasal Cannula 3 12/02/23 08:20 91 Room Air 12/02/23 03:40 97 Room Air 12/02/23 00:43 12/01/23 23:37 94 Nasal Cannula 1.5 12/01/23 21:33 Nasal Cannula 2 12/01/23 19:54 95 Room Air 12/01/23 16:08 96 Nasal Cannula 1.5 12/01/23 14:40 12/01/23 13:20 95 Nasal Cannula 2 Transfer of Care Handoff Completed per policy Notes Mental Status: alert / awake / arousable and participated in evaluation Patient Amnestic to Procedure: Yes Nausea / Vomiting: adequately controlled Pain: adequately controlled Airway Patency, RR, SpO2: stable & adequate BP & HR: stable & adequate Hydration State: stable & adequate Anesthetic Complications: no major complications apparent and Pt Satisfied with anesthetic care
--- NOTE | 2023-12-02 11:35 | Hospitalist Progress Note ---
Date of Service December 02, 2023 Assessment & Plan (1) Acute upper gastrointestinal bleeding: Plan: GI Bleed -One episode of coffee ground emesis on evening of 11/29, at least two episodes of dark/black BMs in past few days -Suspect upper GI bleed, has recently been taking BID aspirin and Ketorolac since her knee replacement -Will keep NPO, IV Protonix BID. Zofran PRN. -Consult placed for GI, appreciate recommendations -Plan is EGD today (2) Status post left knee replacement: Plan: S/P Left Knee Replacement -Was at [facility] for ongoing rehab after knee replacement -Will hold aspirin and Ketoralac at present due to concern for GI bleed -IV Tylenol PRN for pain. 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 Physical Exam Physical Exam: The patient is awake, alert and oriented 3, well developed and well nourished, normocephalic and atraumatic, lying in bed and in no acute distress. HEENT--PERRL, EOMI, mucous membranes and oropharynx mildly dry Neck--supple. No JVD. No bruits. Thyroid normal, trachea midline, no adenopathy. Heart--normal S1 and S2. No murmurs, rubs or gallops. Lungs--clear bilaterally, no respiratory distress, no accessory muscle use. Abdomen--normal bowel sounds and soft. Extremities--no cyanosis or clubbing. No edema. Dermatologic--normal skin turgor, normal color, no abnormal lymph nodes, no rash. Neurologic--cranial nerves II through XII grossly intact. Rheumatologic--normal range of motion. Psychiatric--normal affect. Results & Data Results & Data Vital Signs (Past 12 Hours) Vital Signs Temp Pulse Pulse Pulse Resp BP BP 12/02/23 11:15 98.6 F 67 16 123/64 12/02/23 11:05 68 17 117/62 12/02/23 10:55 69 18 118/61 12/02/23 10:45 98.2 F 68 21 130/55 L 12/02/23 08:20 97.9 F 80 18 128/64 12/02/23 03:40 98.1 F 77 16 92/56 L 12/02/23 00:43 71 12/01/23 23:37 97.7 F 70 12 122/69 Pulse Ox O2 Del Method O2 Flow Rate 12/02/23 11:15 95 Nasal Cannula 2 12/02/23 11:05 97 Nasal Cannula 3 12/02/23 10:55 96 Nasal Cannula 3 12/02/23 10:45 94 Nasal Cannula 3 12/02/23 08:20 91 Room Air 12/02/23 03:40 97 Room Air 12/02/23 00:43 12/01/23 23:37 94 Nasal Cannula 1.5 PG Care Time/CCT Total # of Minutes Spent Total Time Spent with Patient: Total time spent is greater than 50% in coordination of care (as documented) at patient's floor/unit and/or counseling patient: Coding Level of Care Code 23133 SUB INP/OBS CARE 2/35MIN Diagnoses Acute upper gastrointestinal bleeding K92.2 Status post left knee replacement Z96.652 Acute blood loss anemia D62 Time Spent (min) 35
--- NOTE | 2023-12-02 13:19 | Electrocardiogram Report ---
Test Reason : Blood Pressure : */* mmHG Vent. 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
[2023-12-02] MEDS: ACETAMINOPHEN 1,000 MG/100 ML VIAL IV PRN (16:34)
--- NOTE | 2023-12-02 19:41 | Billing Data ---
Date of Service December 02, 2023 Coding Level of Care Code 41943 INT INP/OBS CARE
[2023-12-03 07:15] LABS: Hematocrit (blood only) 24.4 % (37.0-47.0); Mean Corpuscular Hemoglobin 32.4 pg (25.0-34.0); Mean Corpuscular Hgb Conc 32.8 g/dL (32.0-36.0); Mean Corpuscular Volume 98.8 fL (80.0-100.0); Mean Platelet Volume 10.3 fL (9.4-12.4); Nucleated RBC # (auto) 0.05 K/uL (0.00-0.12); Nucleated RBC % (auto) 0.4 %; Platelet Count 270 K/uL (130-400); RDW Coefficient of Variation 13.9 % (11.5-14.5); RDW Standard Deviation 49.6 fL (36.4-46.3); Red Blood Count 2.47 M/uL (4.20-5.40); White Blood Count 13.77 K/ul (4.8-10.8)
[2023-12-03 07:45] LABS: Albumin Globulin Ratio 1.6 (0.9-2); Albumin Level 3.3 gm/dl (3.4-5.0); Bilirubin,Total 0.7 mg/dl (0.2-1.0); Calcium 8.3 mg/dl (8.6-10.3); Creatinine Clr Calc Pharmacy 61.2 ml/min; Est GFR (African American) 94.8 ml/min; Est GFR (Non-African American) 81.8 ml/min; Globulin 2.1 gm/dl (2.5-4.0); Total Protein 5.4 gm/dl (6.0-8.3)
--- NOTE | 2023-12-03 11:24 | Gastroenterology Progress Note ---
Date of Service December 03, 2023 Assessment & Plan (1) Acute upper gastrointestinal bleeding: Plan: Hopefully she is just clearing out blood. Would continue to watch here until hgb stabilizes. Will start liquids Admission and Anticipated Discharge Date Admission Date: December 01, 2023 Subjective Feeling well. Had some blood with bowel movement yesterday after procedure but no bowel movement since. Hgb now 8.0 Physical Exam Physical Exam: She looks well Constitutional: WD/WN, vitals as above Results & Data Vital Signs (Past 12 Hours) Vital Signs Temp Pulse Pulse Pulse Pulse Resp BP 12/03/23 08:16 37.0 C 73 18 133/64 12/03/23 07:30 12/03/23 07:00 84 12/03/23 04:00 37.4 C 12/03/23 03:47 37.6 C H 76 16 12/02/23 23:46 72 BP Pulse Ox O2 Del Method 12/03/23 08:16 93 Room Air 12/03/23 07:30 Room Air 12/03/23 07:00 12/03/23 04:00 12/03/23 03:47 114/74 93 Room Air 12/02/23 23:46 94 Room Air
--- NOTE | 2023-12-03 12:37 | XRay Report ---
XR chest 1V portable HISTORY: 83 years-old Female increased oxygen use COMPARISON: 12/01/2023 TECHNIQUE: AP view of the chest FINDINGS: Heart silhouette is enlarged. Mild right hemidiaphragmatic elevation. Atherosclerosis of the aorta. U nchanged mild blunting of the costophrenic angles without pneumothorax, large pleural effusion or ove rt pulmonary edema. Degenerative changes of the shoulders and spine. IMPRESSION: Cardiomegaly without acute process. ACT 112: Negative or not required by law. The above report was generated using voice recognition software. It may contain grammatical, syntax o r spelling errors. Electronically signed by: Amilcar Frey M.D. 12/03/2023 12:35 PM
--- NOTE | 2023-12-03 13:36 | Hospitalist Progress Note ---
Date of Service December 03, 2023 Assessment & Plan (1) Acute upper gastrointestinal bleeding: Plan: GI Bleed -One episode of coffee ground emesis on evening of 11/29, at least two episodes of dark/black BMs in past few days -Suspect upper GI bleed, has recently been taking BID aspirin and Ketorolac since her knee replacement -EGD showed evidence of a large non bleeding gastric ulcer -Continue PO Protonix -Follow up GI in 3 months for a repaet EGD to document healing (2) Acute blood loss anemia: Plan: Due to GI bleed -Hgb baseline ~16.6, was 13.4 on day of discharge -Today Hgb at 8.0 -Will monitor q4h H&Hs, blood consent signed and in chart if needed -Hemodynamically stable at present, will monitor on telemetry (3) Status post left knee replacement: Plan: S/P Left Knee Replacement -Was at [facility] for ongoing rehab after knee replacement -Will hold aspirin and Ketoralac at present due to concern for GI bleed -IV Tylenol PRN for pain. 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 Physical Exam Physical Exam: The patient is awake, alert and oriented 3, well developed and well nourished, normocephalic and atraumatic, lying in bed and in no acute distress. HEENT--PERRL, EOMI, mucous membranes and oropharynx mildly dry Neck--supple. No JVD. No bruits. Thyroid normal, trachea midline, no sebastien nopathy. Heart--normal S1 and S2. No murmurs, rubs or gallops. Lungs--clear bilaterally, no respiratory distress, no accessory muscle use. Abdomen--normal bowel sounds and soft. Extremities--no cyanosis or clubbing. No edema. Dermatologic--normal skin turgor, normal color, no abnormal lymph nodes, no rash. Neurologic--cranial nerves II through XII grossly intact. Rheumatologic--normal range of motion. Psychiatric--normal affect. Results & Data Results & Data Vital Signs (Past 12 Hours) Vital Signs Temp Pulse Pulse Pulse Resp BP BP 12/03/23 12:07 97.3 F L 68 16 113/57 L 12/03/23 08:16 98.6 F 73 18 133/64 12/03/23 07:30 12/03/23 07:00 84 12/03/23 04:00 99.3 F 12/03/23 03:47 99.7 F H 76 16 114/74 Pulse Ox O2 Del Method O2 Flow Rate 12/03/23 12:07 92 Nasal Cannula 2 12/03/23 08:16 93 Room Air 12/03/23 07:30 Room Air 12/03/23 07:00 12/03/23 04:00 12/03/23 03:47 93 Room Air PG Care Time/CCT Total # of Minutes Spent Total Time Spent with Patient: Total time spent is greater than 50% in coordination of care (as documented) at patient's floor/unit and/or counseling patient: Coding Level of Care Code 30732 SUB INP/OBS CARE 2/35MIN Diagnoses Acute upper gastrointestinal bleeding K92.2 Acute blood loss anemia D62 Status post left knee replacement Z96.652 Time Spent (min) 35
[2023-12-04 07:03] LABS: Hemoglobin 7.7 g/dl (12.0-16.0); Mean Corpuscular Hemoglobin 32.9 pg (25.0-34.0); Mean Corpuscular Hgb Conc 33.5 g/dL (32.0-36.0); Mean Corpuscular Volume 98.3 fL (80.0-100.0); Mean Platelet Volume 10.5 fL (9.4-12.4); Nucleated RBC # (auto) 0.06 K/uL (0.00-0.12); Nucleated RBC % (auto) 0.4 %; Platelet Count 306 K/uL (130-400); RDW Coefficient of Variation 13.7 % (11.5-14.5); RDW Standard Deviation 48.3 fL (36.4-46.3); Red Blood Count 2.34 M/uL (4.20-5.40); White Blood Count 14.68 K/ul (4.8-10.8)
[2023-12-04] MEDS ORDERED: SODIUM CHLORIDE 0.9% 250 ML IV PRN (07:46)
[2023-12-04] MEDS: amLODIPine BESYLATE 5 MG TAB PO ONE (13:13)
--- NOTE | 2023-12-04 13:53 | Hospitalist Progress Note ---
Date of Service December 04, 2023 Assessment & Plan (1) Acute upper gastrointestinal bleeding: Plan: GI bleed due to medications (ASA and NSAIDS) -One episode of coffee ground emesis on evening of 11/29, at least two episodes of dark/black BMs in past few days -Suspect upper GI bleed, has recently been taking BID aspirin and Ketorolac since her knee replacement -EGD showed evidence of a large non bleeding gastric ulcer -Continue PO Protonix -Follow up GI in 3 months for a repaet EGD to document healing (2) Acute blood loss anemia: Plan: Due to GI bleed -Hgb baseline ~16.6, was 13.4 on day of discharge -Today Hgb at 7.7 -Will transfuse 2 units of blood -recheck Hb in the morning (3) Status post left knee replacement: Plan: S/P Left Knee Replacement -Was at [facility] for ongoing rehab after knee replacement -Will hold aspirin and Ketoralac at present due to concern for GI bleed -IV Tylenol PRN for pain. 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 Physical Exam Physical Exam: The patient is awake, alert and oriented 3, well developed and well nourished, normocephalic and atraumatic, lying in bed and in no acute distress. HEENT--PERRL, EOMI, mucous membranes and oropharynx mildly dry Neck--supple. No JVD. No bruits. Thyroid normal, trachea midline, no adenopathy. Heart--normal S1 and S2. No murmurs, rubs or gallops. Lungs--clear bilaterally, no respiratory distress, no accessory muscle use. Abdomen--normal bowel sounds and soft. Extremities--no cyanosis or clubbing. No edema. Dermatologic--normal skin turgor, normal color, no abnormal lymph nodes, no rash. Neurologic--cranial nerves II through XII grossly intact. Rheumatologic--normal range of motion. Psychiatric--normal affect. Results & Data Results & Data Vital Signs (Past 12 Hours) Vital Signs Temp Pulse Pulse Pulse Resp BP BP 12/04/23 13:45 97.9 F 77 16 150/72 H 12/04/23 13:16 98.1 F 73 18 148/77 H 12/04/23 13:15 98.1 F 73 16 148/77 H 12/04/23 13:15 98.1 F 73 18 148/77 H 12/04/23 13:00 97.3 F L 69 16 164/74 H 12/04/23 12:45 97.9 F 65 16 185/80 H 12/04/23 12:41 97.9 F 65 16 185/80 H 12/04/23 12:30 98.1 F 65 16 172/88 H 12/04/23 11:56 98.2 F 66 18 164/76 H 12/04/23 11:06 98.2 F 69 16 149/94 H 12/04/23 11:01 98.2 F 69 16 149/94 H 12/04/23 10:31 97.9 F 71 16 159/79 H 12/04/23 10:16 97.9 F 61 16 157/71 H 12/04/23 09:50 98.2 F 71 16 124/55 L 12/04/23 07:44 12/04/23 07:23 98.1 F 71 16 143/76 H 12/04/23 07:00 70 12/04/23 03:55 98.4 F 49 L 16 BP Pulse Ox O2 Del Method O2 Flow Rate 12/04/23 13:45 92 12/04/23 13:16 95 12/04/23 13:15 95 12/04/23 13:15 95 12/04/23 13:00 94 12/04/23 12:45 91 12/04/23 12:41 91 12/04/23 12:30 92 12/04/23 11:56 92 2 12/04/23 11:06 96 Nasal Cannula 2 12/04/23 11:01 96 2 12/04/23 10:31 95 2 12/04/23 10:16 95 2 12/04/23 09:50 91 2 12/04/23 07:44 Room Air 12/04/23 07:23 90 Nasal Cannula 2 12/04/23 07:00 12/04/23 03:55 108/64 93 Room Air PG Care Time/CCT Total # of Minutes Spent Total Time Spent with Patient: Total time spent is greater than 50% in coordination of care (as documented) at patient's floor/unit and/or counseling patient: Coding Level of Care Code 56283 SUB INP/OBS CARE 2/35MIN Diagnoses Acute upper gastrointestinal bleeding K92.2 Acute blood loss anemia D62 Status post left knee replacement Z96.652 Time Spent (min) 35
--- NOTE | 2023-12-04 15:02 | Orthopedic Consultation ---
Date of Service December 04, 2023 Assessment & Plan (1) Status post left knee replacement: 83-year-old female with now 1 week out from a left total knee replacement complicated by a upper GI bleed. She is getting 2 units of blood today. Orthopedically she is doing well. Unfortunately, this limits her choices and options with the thrombosis prophylaxis. Plan: At this point she is given 2 units of blood. Medical management as per the medicine GI service. That she should continue physical for physical therapy. There is no signs of bleeding into her knee abnormally up. Routine wound care. I will see her back 2 weeks postop. DVT prophylaxis will have to be thigh-high teds, and SCDs. Any orthopedic questions can be directly [phone]. (2) Acute upper gastrointestinal bleeding: History of Present Illness Reason for Consultation: . 1 week status post left knee replacement complicated by upper GI bleed. Requesting Physician: . Attending Physician: Shey Lugo MD . Patient is an 83-year-old long-term patient of mine who is now 1 week out from a left total knee replacement. She did pretty well immediately postop but then the developed an upper GI bleed and was admitted to the hospital. She has been managed by the GI and the medicine service. She is getting 2 units of blood today. Her pain is controlled. No real complaints. No abdominal pain. Allergies Allergy/AdvReac Type Severity Reaction Status Date / Time codeine Allergy Unknown Nausea Verified 11/27/23 05:27 buspar AdvReac Intermediate "Did not Uncoded 11/27/23 05:27 like the way it made me feel" Home Medications Medication Instructions Recorded Confirmed Type cholecalciferol (vitamin D3) 50 2,000 unit PO DAILY 02/26/20 12/01/23 History mcg (2,000 unit) capsule psyllium [Metamucil] 1 cap PO Q OTHER DAY 12/12/22 12/01/23 History timolol maleate 0.5 % eye drops 1 drp ophthalmic (eye) DAILY 12/12/22 12/01/23 History oxybutynin chloride 5 mg tablet 5 mg PO DAILY #90 tabs 10/17/23 12/01/23 Rx cyanocobalamin (vitamin B-12) 50 50 mcg PO DAILY 10/24/23 12/01/23 History mcg tablet (Vitamin B-12) albuterol sulfate 90 mcg/actuation 2 puff inhalation Q6H PRN 11/05/23 12/01/23 Rx aerosol inhaler (Ventolin HFA) shortness of breath or wheezing #3 Inhalers acetaminophen 500 mg tablet 1,000 mg (2 x 500 mg) PO TID pain 11/25/23 12/01/23 Rx (Tylenol Extra Strength) 30 days #180 tabs aspirin 81 mg tablet,delayed 81 mg PO BID 45 days #90 tabs 11/25/23 12/01/23 Rx release (Preet Low Dose Aspirin) cefadroxil 500 mg capsule 500 mg PO DAILY 7 days #7 caps 11/25/23 12/01/23 Rx ketorolac 10 mg tablet 10 mg PO Q6 pain 5 days #20 tabs 11/25/23 12/01/23 Rx sennosides 8.6 mg tablet (Senokot) 8.6 mg PO BID prevent constipation 11/25/23 12/01/23 Rx 14 days #28 tabs tramadol 50 mg tablet 50 - 100 mg (1 - 2 x 50 mg) PO Q6 11/25/23 12/01/23 Rx PRN pain #40 tabs amlodipine 10 mg tablet 10 mg PO DAILY 12/01/23 12/01/23 History amoxicillin 500 mg capsule 2,000 mg PO ONCE PRN prior to 12/01/23 12/01/23 History dental appt atorvastatin 10 mg tablet 10 mg PO HS 12/01/23 12/01/23 History loratadine 10 mg tablet 10 mg PO DAILY PRN Allergy Symptoms 12/01/23 12/01/23 History losartan 50 mg tablet 50 mg PO DAILY 12/01/23 12/01/23 History ondansetron 4 mg disintegrating 4 mg PO Q4 PRN nausea 12/01/23 12/01/23 History tablet Past Med/Surg History Problem List Acute blood loss anemia Acute hypotension (Acute) Acute upper gastrointestinal bleeding (Acute) Hematemesis Status post left knee replacement Anxiety Left knee DJD Abnormal mammogram of right breast Urinary incontinence Smell and taste disorder Vitamin D deficiency Chronic rhinitis (Acute) External hemorrhoids (Acute) Gastroesophageal reflux disease without esophagitis (Acute) Hydronephrosis of right kidney (Acute) Hypercholesterolemia (Acute) Obstructive sleep apnea (adult) (pediatric) (Chronic) Osteopenia (Acute) Medical History Essential hypertension Osteopenia Low back pain Hypercholesteremia 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, hx chemo (completed ) and s/p multiple surgical interventions (most recently 2019) Chronic rhinitis Arthritis 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 Follows with [facility] [place]ology Secondary polycythemia Follows with [facility] [place] heme/onc (Dr Gonzalez) Monitored every 3 mos- PRN phlebotomy (most recent 09/2023) History of COVID-19 (2022) Symptoms resolved CRISTINA (obstructive sleep apnea) "No device needed" per patient Intrinsic asthma GERD (gastroesophageal reflux disease) Anxiety Conductive hearing loss Surgical History S/P hernia repair S/P total knee arthroplasty Right S/P splenectomy S/P bilateral salpingo-oophorectomy S/P right hemicolectomy S/P hysterectomy S/P eye surgery S/P exploratory laparotomy S/P cholecystectomy Family History Brother Myocardial infarction Stroke Brother Myocardial infarction Stroke Mother , AGE 68 Myocardial infarction Parents Stroke Father , AGE 87 Aneurysm of femoral artery Parents Osteoarthritis Aunt Colorectal cancer Grandfather (Maternal) Stroke Denies family history of Ovarian cancer Breast cancer Social History Smoking Status: Never smoker Second Hand Exposure: No; Do You Dip or Chew Tobacco: No; Hx Alcohol Use: Yes Alcohol type: wine Alcohol Intake Frequency Comment: SOCAILLY Hx Substance Use: No Preferred Language: Lithuanian Communication Ability: Effective Visual Impairment: No Limitations Hearing Ability: Normal Multi Slide Machine Tender Required: No Beliefs That Will Affect Care: None marital status: Current Living Situation: Spouse current occupational status: retired Feels Safe at Home: Yes Safety Concerns: Feels Safe At This Time Dental Care, Regularly: Yes Physical Activity Frequency: Daily Physical Activity Frequency Comment: yoga, walk Seatbelt Use: always Sunscreen Use: Yes Assistive Devices: None Review of Systems All systems reviewed & are unremarkable except as noted in HPI & below. Physical Exam . Physical examination reveals a pleasant elderly female. I had to wake her at this afternoon. Examination of the left leg reveals the dressing to be clean dry and intact. Her thigh is soft and supple. Her calf is soft and supple. No drainage from the incision site. She can do a straight leg raise with some effort. She is neurologically intact. Results & Data Results & Data Laboratory Results . Hemoglobin is 7.7 this morning and hematocrit 23.0. Diagnostic Findings . PG Care Time/CCT Total # of Minutes Spent Total Time Spent with Patient: Total time spent is greater than 50% in coordination of care (as documented) at patient's floor/unit and/or counseling patient: Coding Level of Care Code None Diagnoses Status post left knee replacement Z96.652 Acute upper gastrointestinal bleeding K92.2
[2023-12-04 17:01] LABS: Hematocrit (blood only) 31.7 % (37.0-47.0); Hemoglobin 10.6 g/dl (12.0-16.0)
[2023-12-04] MEDS: ACETAMINOPHEN 325 MG TAB PO PRN (17:29)
[2023-12-05 07:33] VITALS: O2SAT 93
--- NOTE | 2023-12-05 07:56 | Hospitalist Progress Note ---
Date of Service December 05, 2023 Assessment & Plan (1) Acute upper gastrointestinal bleeding: Plan: GI bleed due to medications (ASA and NSAIDS) - GI bleed, has recently been taking BID aspirin and Ketorolac since her knee replacement Acute blood loss anemia s/p 2 u prbc -EGD showed evidence of a large non bleeding gastric ulcer -Continue PO Protonix -Follow up GI in 3 months for a repeat EGD to document healing Limits post op knee replacement thrombosis prophylaxis (2) Status post left knee replacement: Plan: S/P Left Knee Replacement -Was at [facility] for ongoing rehab after knee replacement -Will hold aspirin and Ketoralac due to GI bleed -IV Tylenol PRN for pain. 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 Hypertension -Hold antihypertensives until able to take PO Hyperlipidemia -Hold statin until able to take PO Hopefully d/c tomorrow Admission and Anticipated Discharge Date Admission Date: December 01, 2023 Results & Data Results & Data Vital Signs (Past 12 Hours) Vital Signs Temp Pulse Pulse Resp BP BP Pulse Ox 12/05/23 07:33 98.8 F 62 20 136/73 93 12/05/23 06:53 62 12/05/23 02:35 98.4 F 66 18 135/70 90 12/04/23 21:55 76 12/04/23 21:54 98.1 F 61 18 145/61 H 92 12/04/23 20:46 O2 Del Method 12/05/23 07:33 Room Air 12/05/23 06:53 12/05/23 02:35 Room Air 12/04/23 21:55 12/04/23 21:54 Room Air 12/04/23 20:46 Room Air PG Care Time/CCT Total # of Minutes Spent Total Time Spent with Patient: Total time spent is greater than 50% in coordination of care (as documented) at patient's floor/unit and/or counseling patient: Coding Diagnoses Acute upper gastrointestinal bleeding K92.2 Status post left knee replacement Z96.652
[2023-12-05 08:34] LABS: Hematocrit (blood only) 30.8 % (37.0-47.0); Hemoglobin 10.6 g/dl (12.0-16.0); Mean Corpuscular Hemoglobin 31.7 pg (25.0-34.0); Mean Corpuscular Hgb Conc 34.4 g/dL (32.0-36.0); Mean Corpuscular Volume 92.2 fL (80.0-100.0); Mean Platelet Volume 10.9 fL (9.4-12.4); Nucleated RBC % (auto) 0.6 %; Platelet Count 349 K/uL (130-400); RDW Coefficient of Variation 15.3 % (11.5-14.5); RDW Standard Deviation 50.4 fL (36.4-46.3); Red Blood Count 3.34 M/uL (4.20-5.40); White Blood Count 17.13 K/ul (4.8-10.8)
[2023-12-05 11:46] VITALS: PULSE 58; RESP 19; TEMP 98.6
[2023-12-05 12:27] VITALS: BP 135/70
--- NOTE | 2023-12-05 17:41 | Discharge Summary ---
Discharge Summary Date of Service December 05, 2023 Principal Dx & Hospital Course #1 = Principal Diagnosis (1) Acute upper gastrointestinal bleeding: GI bleed due to medications (ASA and NSAIDS) - GI bleed, has recently been taking BID aspirin and Ketorolac since her knee replacement Acute blood loss anemia s/p 2 u prbc -EGD showed evidence of a large non bleeding gastric ulcer -Continue PO Protonix, 5 days of carafate -Follow up GI in 3 months for a repeat EGD to document healing Limits post op knee replacement thrombosis prophylaxis (2) Status post left knee replacement: S/P Left Knee Replacement -Was at [facility] for ongoing rehab after knee replacement -Will hold aspirin and Ketoralac due to GI bleed without plans to restart -Tylenol PRN for pain. 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 She reports that she had dinner this evening and was feeling well until about 9 or 10pm when she began to feel lightheaded and nauseated, had an episode of coffee ground emesis. [facility] also reported an approximately 30 second period where she was unresponsive. While at bedside, patient reports overall feeling "fine", she denies any current lightheadedness/dizziness/nausea. She notes that two days ago and again today she had a dark/blackish bowel movement. She notes that she has been taking Ketoralac PO for pain control as well as twice daily aspirin post- op. She denies any history of prior GI bleeds. States she has otherwise been feeling well since her knee surgery. Lives at home with her . ED Course: -CBC, CMP -EKG -IV Protonix 40mg Discharge Exam Patient looks well she is her leg wraps we discussed VTE risk card exam is regular lungs are clear Discharge Plan Discharge Items Patient Disposition: Transfer Inpatient Rehab Fac Reason For Visit: GI BLEED Discharge Diagnosis: acute blood loss anemia- with transfusion of 2 units blood products gastric ulcer with pigmentation recent left total knee replacement Activity: Per Instructions section Activity Comment: per post op knee replacement Non-emergency contact: Primary Care Provider Call non-emergency contact if: your symptoms worsen Follow-up/Referrals: Juan Miguel Hargrove MD [Primary Care Provider] - Diet: Regular Addtl Attending Provider Instructions: please coordinate any med changes due to carafate, carafate will be 5 days khoa atment please consider eval of blood pressure as losartan and amlodipine was held, will consider restart losartan but certainly will recommend re evaluate need for bp meds Pending Studies at Discharge: No Stand-Alone Forms: My [facility] Skilled Items Patient informed of condition?: Yes DNR: No Discharge Level of Care: Acute rehab Communicable Disease: No Discharge Prognosis: Stable Lines: None Urinary Catheter: No Medications and DC Order Prescriptions: New pantoprazole [Protonix] 40 mg tablet,delayed release (DR/EC) 40 mg PO BID Qty: 60 5RF sucralfate [Carafate] 1 gram tablet 1 g PO ACHS Qty: 20 0RF Continued timolol maleate 0.5 % drops 1 drp ophthalmic (eye) DAILY cholecalciferol (vitamin D3) 50 mcg (2,000 unit) capsule 2,000 unit PO DAILY oxybutynin chloride 5 mg tablet 5 mg PO DAILY Qty: 90 3RF albuterol sulfate [Ventolin HFA] 90 mcg/actuation HFA aerosol inhaler 2 puff inhalation Q6H PRN (Reason: shortness of breath or wheezing) Qty: 3 3RF tramadol 50 mg tablet 50 - 100 mg PO Q6 PRN (Reason: pain) Qty: 40 0RF Rx Instructions: Take as needed for pain sennosides [Senokot] 8.6 mg tablet 8.6 mg PO BID 14 Days Qty: 28 0RF Rx Instructions: Take two times a day to prevent/treat constipation acetaminophen [Tylenol Extra Strength] 500 mg tablet 1,000 mg PO TID 30 Days Qty: 180 0RF Rx Instructions: Take 3 times per day to lessen pain. psyllium [Metamucil] 1 cap PO Q OTHER DAY Vitamin B-12 50 mcg Tablet 50 mcg PO DAILY amoxicillin 500 mg capsule 2,000 mg PO ONCE PRN (Reason: prior to dental appt) Rx Instructions: take 4 caps 1 hour prior to dental appointment ondansetron 4 mg tablet,disintegrating 4 mg PO Q4 PRN (Reason: nausea) Rx Instructions: Take as needed for nausea losartan 50 mg Tablet 50 mg PO DAILY atorvastatin 10 mg Tablet 10 mg PO HS loratadine 10 mg Tablet 10 mg PO DAILY PRN (Reason: Allergy Symptoms) Held amlodipine 10 mg Tablet 10 mg PO DAILY Hold Instructions: Resume on 12/11/23. Discontinued ketorolac 10 mg tablet 10 mg PO Q6 5 Days Qty: 20 0RF Rx Instructions: Take 4 times per day with food for 5 days to lessen pain and swelling. aspirin [Preet Low Dose Aspirin] 81 mg tablet,delayed release (DR/EC) 81 mg PO BID 45 Days Qty: 90 0RF Rx Instructions: Take to prevent blood clots. cefadroxil 500 mg capsule 500 mg PO DAILY 7 Days Qty: 7 0RF Rx Instructions: Take 1 cap per day to prevent infection Discharge Orders: Discharge Order (Routine); Ordered 12/05/23 Ordered By: Dejuan Jin/Other Patient Handouts: GI Bleeding Causes and Tests, Understanding Gastric Ulcers Admission Data Admit Date/Time: 12/01/23 04:37 Attending Provider: Dejuan Zhang Admit Provider: Ingrid Del Cid Primary Care Provider: Juan Miguel Hargrove V. Other Providers: Brian Lutz; Hemant Bacon Jr; [facility] Other Interventions: Discharge Summary Assessment (RN) Last Done: 12/05/23 12:25 Hospital Stay Data Consultations 12/01/23 03:30 ED Decision to Admit Stat 12/01/23 06:25 Consult Gastroenterology Routine Procedures Performed Operation Date: 12/02/23 10:30 Actual Procedures p Esophagogastroduodenoscopy(Not Applicable) - Hemant Bacon Jr, MD Pending Results Patient Have Any Pending Studies at Discharge: No Discharge Instructions Given to Patient (Per Discharging Provider) please coordinate any med changes due to carafate, carafate will be 5 days treatment please consider eval of blood pressure as losartan and amlodipine was held, will consider restart losartan but certainly will recommend re evaluate need for bp meds Total Time Total Time Spent Total Time Spent (In Minutes): It required greater than 30 minutes to prepare this patient for discharge. Coding Level of Care Code 10938 INP/OBS DISCH >30 MIN Diagnoses Acute upper gastrointestinal bleeding K92.2 Status post left knee replacement Z96.652
== END 2023-12-05 13:36 | DRG 378 ==
LOC: ED 00:10 → 2N 04:37 → SUATTDRO 04:37 → 2N 05:56